=== PATIENT | male | born 1950 | race Caucasian/White ===

== ENCOUNTER 2021-10-15 15:11 | Inpatient (IN) | payer MEDICARE, SELFPAY ==
--- NOTE | ~2021-10-15 | CT_ITS ---
EXAMINATION: CT HEAD WITHOUT CONTRAST CLINICAL INFORMATION: Multiple falls. COMPARISON: None TECHNIQUE: Contiguous axial imaging was performed from the skull base to vertex without intravenous administration of contrast. This CT examination was performed using dose optimization techniques as appropriate, variously including the following: *Automated exposure control *Adjustment of mA and/or kV according to patient size (this includes techniques or standardized protocols for targeted exams where dose is matched to indication/reason for exam; i.e. extremities or head) *Use of iterative reconstruction technique DLP: 764 mGy-cm FINDINGS: There is no evidence of acute intracranial hemorrhage or territorial infarction. No abnormal mass effect or midline shift is seen. Melendrez to white matter differentiation is well preserved. No extra-axial fluid collections are identified. The ventricles are normal in size. There is no abnormal attenuation within the brain parenchyma. The osseous structures and soft tissues are normal. The mastoid air cells and visualized portions of the paranasal sinuses are well aerated. CT/CT head/brain wo con IMPRESSION: No acute intracranial hemorrhage or mass effect.
--- NOTE | ~2021-10-15 | US_ITS ---
EXAMINATION: US VENOUS ULTRASOUND WITH DOPPLER LOWER EXTREMITY, BILATERAL CLINICAL INFORMATION: Bilateral lower extremity edema. COMPARISON: None TECHNIQUE: Ultrasound of the deep veins is performed from the hip to the calf with compression sonography and color and pulse Doppler assessment. Spectral analysis with color-flow imaging is performed. FINDINGS: RIGHT: There is normal venous compression and respiratory variation and augmented flow. The visualized common femoral vein, femoral vein, profunda femoral vein, popliteal vein, and the trifurcation region shows no evidence of deep venous thrombosis. A 4.0 x 2.1 x 3.3 cm somewhat irregular largely simple-appearing avascular fluid collection is noted in the right popliteal fossa medially. LEFT: There is normal venous compression and respiratory variation and augmented flow. The visualized common femoral vein, femoral vein, profunda femoral vein, popliteal vein, and the trifurcation region shows no evidence of deep venous thrombosis. There is no significant popliteal fossa cyst. If the patient's symptoms persist, followup ultrasound in 5 days 7 days might be of value to exclude proximal propagation from a non-visualized calf vein. US/US venous duplex LE BI IMPRESSION: No DVT demonstrated in the bilateral lower extremity. A 4.0 x 2.1 x 3.3 cm fluid collection in the popliteal fossa.
--- NOTE | ~2021-10-15 | XR_ITS ---
EXAMINATION: XR CHEST CLINICAL INFORMATION: Weakness COMPARISON: None TECHNIQUE: Frontal view of the chest was obtained. FINDINGS: The cardiac and mediastinal contours are normal. There is slight elevation of the right hemidiaphragm. The lungs are clear. There is no pleural effusion or pneumothorax. There are degenerative changes of the thoracic spine. There are postsurgical changes of the cervical spine. XR/XR chest 1V IMPRESSION: Slightly elevated right hemidiaphragm. No evidence for acute disease in the chest.
--- NOTE | 2021-10-15 15:23 | ECG_ITS ---
Test Reason : WEAKNESS Blood Pressure : / mmHG Vent. Rate : 114 BPM Atrial Rate : 000 BPM P-R Int : 000 ms QRS Dur : 106 ms QT Int : 344 ms P-R-T Axes : 000 -55 108 degrees QTc Int : 474 ms atrial flutter with rapid ventricular response Left anterior fascicular block Minimal voltage criteria for LVH, may be normal variant ( [place] product ) Nonspecific ST and T wave abnormality Abnormal ECG No previous ECGs available Referred By: Mckenna Carreon Electronically Signed By:Alex Aragon
--- NOTE | 2021-10-15 15:25 | ED_ITS ---
HPI - Fall General Chief Complaint: General Medical <PRITI Burnette - Last Filed: 10/16/21 08:02> Stated Complaint: weakness/falls <PRITI Burnette Last Filed: 10/16/21 08:02> Time Seen by Provider: 10/15/21 15:20 <PRITI Burnette Last Filed: 10/16/21 08:02> Source: patient and EMS <PRITI Burnette Last Filed: 10/16/21 08:02> Mode of arrival: EMS <PRITI Burnette Last Filed: 10/16/21 08:02> Limitations: no limitations <PRITI Burnette Last Filed: 10/16/21 08:02> History of Present Illness HPI Narrative: 70-year-old male with history of Parkinson's disease, HTN, HLD presents to the ER with frequent falls and weakness at home. Family reports patient has had 4-5 falls in the last 2 days. No traumatic injury sustained but family is worried about his ability to be safe at home. Family reports over the last 1 month he has had several falls, 1 resulting in a significant laceration to the top of his head that is now scarred over. He is having trouble performing his activities of daily living. He lives at home with his elderly who is having trouble caring for him. She is also concerned about a possible urinary tract infection as he has been urinating much more frequently than usual. He has not had any fever, chills, nausea, vomiting or abdominal pain. He has denies any injuries from his fall. He feels at baseline. He has no chest pain or shortness of breath. On arrival patient noted to be tachycardic to the low 100s it appears to be in new onset rapid atrial atrial fibrillation. When asked about his falls he states sometimes he trips over things other times he feels dizzy and lightheaded prior to falling. He states he has felt this way for a very long time but is worsening lately. <PRITI Burnette Last Filed: 10/16/21 08:02> MD complaint: fall <PRITI Burnette Last Filed: 10/16/21 08:02> Onset (ago): week(s) <PRITI Burnette - Last Filed: 10/16/21 08:02> Fall from: standing <PRITI Burnette - Last Filed: 10/16/21 08:02> Fall witnessed: yes, by family <PRITI Burnette - Last Filed: 10/16/21 08:02> Place fall occurred: home <PRITI Burnette - Last Filed: 10/16/21 08:02> Loss of consciousness: none <PRITI Burnette - Last Filed: 10/16/21 08:02> Prolonged down time: no <PRITI Burnette - Last Filed: 10/16/21 08:02> Symptoms prior to fall: lightheadedness and dizziness <PRITI Burnette - Last Filed: 10/16/21 08:02> Context: tripped/slipped and history of frequent falls <PRITI Burnette - Last Filed: 10/16/21 08:02> Severity: moderate <PRITI Burnette - Last Filed: 10/16/21 08:02> Associated symptoms (after fall): weakness and lightheaded <PRITI Burnette - Last Filed: 10/16/21 08:02> Related Data Home Medications: Home Medications Medication Instructions Recorded Confirmed amlodipine 10 mg tablet 1 tab PO BEDTIME 10/15/21 10/16/21 carbidopa 25 mg-levodopa 100 mg 2 tab PO TID 10/15/21 10/16/21 tablet gabapentin 100 mg capsule 100 mg PO BID 10/15/21 10/15/21 tamsulosin 0.4 mg capsule 1 cap PO DAILY 10/15/21 10/15/21 trazodone 50 mg tablet 1 tab PO BEDTIME 10/15/21 10/15/21 venlafaxine 75 mg capsule,extended 1 cap PO DAILY 10/15/21 10/15/21 release 24 hr ascorbic acid (vitamin C) 1,000 mg 1,000 mg PO DAILY 10/16/21 10/16/21 tablet (Vitamin C) cholecalciferol (vitamin D3) 125 10,000 unit PO DAILY 10/16/21 10/16/21 mcg (5,000 unit) tablet (Vitamin D3) coenzyme Q10 200 mg capsule 200 mg PO DAILY 10/16/21 10/16/21 <PRITI Burnette - Last Filed: 10/16/21 08:02> Allergies/Adverse Reactions: Allergies Allergy/AdvReac Type Severity Reaction Status Date / Time No Known Drug Allergies Allergy Unknown Verified 10/15/21 16:52 <PRITI Burnette - Last Filed: 10/16/21 08:02> Review of Systems Review of Systems: Constitutional: No Fever, No Chills ENT/Mouth: No sore throat, No Rhinorrhea, No Swallowing Difficulty Cardiovascular: No Chest Pain, No SOB, No Orthopnea, No Edema Respiratory: No Cough, No Sputum, No Wheezing, No dyspnea Gastrointestinal: No Nausea, No Vomiting, No Diarrhea, No abdominal Pain, No Hematochezia, No Melena Genitourinary: No Dysuria, No Urinary Frequency, No Hematuria Musculoskeletal: No joint pain, No Myalgias Skin: No Skin Lesions, No rash Neuro: + Weakness, No Numbness, + Dizziness, No Headache Psych: No Anxiety/Panic, No Depression Heme/Lymph: No Bruising, No Lymphadenopathy Endocrine: No Polyuria, No Polydipsia <PRITI Burnette Last Filed: 10/16/21 08:02> [facility] Past Medical History Medical History: Medical History (Updated 10/15/21 @ 21:49 by Nathan Bingham MD) Depression HTN (hypertension) Parkinson disease <PRITI Burnette Last Filed: 10/16/21 08:02> Social History Social History: Social History Alcohol intake: never Patient Tobacco Use Status: Never used Tobacco Use of substances other than those prescribed or required for medical reasons: No Advance Directives: Yes Advance Directives Information Provided: No Advance Directives on File: No <PRITI Burnette - Last Filed: 10/16/21 08:02> Physical Exam Vital Signs: Vital Signs: Last Vital Signs Temp 98.1 F 10/16/21 07:13 Pulse 110 H 10/16/21 07:37 Resp 16 10/16/21 07:13 BP 143/89 H 10/16/21 07:37 Pulse Ox 93 10/16/21 07:13 BMI result Body Mass Index 29.8 <PRITI Burnette Last Filed: 10/16/21 08:02> Vital Signs: Last Vital Signs Temp 98.1 F 10/16/21 07:13 Pulse 110 H 10/16/21 07:37 Resp 16 10/16/21 07:13 BP 143/89 H 10/16/21 07:37 Pulse Ox 93 10/16/21 07:13 BMI result Body Mass Index 29.8 <AUSTYN SmithP-BC - Last Filed: 10/16/21 11:15> Appearance: Alert. Oriented X4. No acute distress. Eyes: Pupils equal, round and reactive to light. ENT: Pharynx normal. Neck: Normal inspection. Neck supple. CVS: irregularly irregular, no murmur. Pulses normal. Respiratory: No respiratory distress. Breath sounds shallow and rapid Abdomen: Soft and nontender. +BS x4 Skin: Skin warm and dry. Normal skin color. Normal skin turgor. No rashes. Extremities: 2+ lower extremity edema, pitting of the feet and ankles. No calf tenderness Neuro: Oriented X 4. Involuntary tremor of the right hand. Bilateral lower extremity weakness noted, symmetrical and equal throughout. equal hand grasp. <PRITI Burnette - Last Filed: 10/16/21 08:02> Course Course Course Narrative: 70-year-old male presenting to the ER with weakness and multiple falls over the last few days, increased over the last 1 month in general. He does report some dizziness and lightheadedness prior to some of his falls, but this seems to be chronic in nature. On arrival to the ER he is found to be in new onset rapid AFib. Blood pressure is stable. He is not a candidate for anticoagulation. He is nonfocal on exam, no suggestion of stroke at this time. Will get CT head to confirm. Doubt PE given no shortness of breath, hypoxia or chest pain. No syncopal events. He does have pitting LE edema, will check BNP and LE dopplers. <PRITI Burnette - Last Filed: 10/16/21 08:02> Reevaluation(s) Reevaluation #1: CT head shows no acute findings. He does have a white blood cell count of 14,000. UA is pending. No other signs of infection at this time. COVID is negative and there was no pneumonia on chest x-ray. LE dopplers are pending. HR improved to 90s after IV lopressor and confirmed he is in afib. Poor anticoagulation candidate given recurrent falls. Signed out to Rocio [employer]CHNICIAN who will assume care. Anticipate admission. <PRITI Burnette - Last Filed: 10/16/21 08:02> Time: 17:32 <PRITI Burnette - Last Filed: 10/16/21 08:02> Reevaluation #2: urinalysis negative for infection, ultrasound negative for DVTs. Patient will be admitted to hospitalist services for new onset atrial fibrillation. Spoke with hospitalist, aware of admission. <JOSE MARIA Smith - Last Filed: 10/16/21 11:15> MDM - Fall Medical Records Attestation: I reviewed the patient's medical records. <PRITI Burnette - Last Filed: 10/16/21 08:02> Lab Data Attestation: I reviewed the patient's lab results. <PRITI Burnette - Last Filed: 10/16/21 08:02> Result diagrams: : 10/16/21 05:40 10/16/21 05:40 <PRITI Burnette - Last Filed: 10/16/21 08:02> Labs: Lab Results 10/15/21 10/15/21 10/15/21 Range/Units 15:48 15:48 15:48 WBC 14.3 H (4.8-10.8) X10*3/uL RBC 4.83 (4.60-5.80) X10*6/uL Hgb 15.2 (14.0-18.0) g/dl Hct 43.9 (42.0-52.0) % MCV 90.9 (80.0-98.0) fL MCH 31.5 (27.0-33.0) pg MCHC 34.6 (31.0-36.0) g/dl RDW 12.9 (11.0-16.0) % Plt Count 221 (160-400) X10*3/uL MPV 11.5 (9.4-12.4) fL Immature Gran % (Auto) 0.4 (0.0-0.4) % Neut % (Auto) 87.0 H (45-73) % Lymph % (Auto) 6.8 L (20-40) % [place] % (Auto) 5.5 (2-11) % Eos % (Auto) 0.1 (0-4) % Baso % (Auto) 0.2 (0-2) % Lymph # (Auto) 1.0 L (1.2-4.9) X10*3/uL [place] # (Auto) 0.8 (0.1-1.2) X10*3/uL Eos # (Auto) 0.0 (0.0-0.4) X10*3/uL Baso # (Auto) 0.0 (0.0-0.2) X10*3/uL Abs Immat Gran (auto) 0.06 H (0.00-0.03) X10*3/uL Absolute Neuts (auto) 12.4 H (2.0-8.3) x10*3/uL Absolute Nucleated RBC 0.000 (0.0-0.012) X10*3/uL Nucleated RBC % (auto) 0.0 (0.0-0.2) /100WBC PT 13.3 H (9.9-13.0) SEC INR 1.2 H (0.9-1.1) APTT 27.9 (24.1-38.0) SEC Sodium 139 (135-145) mmol/L Potassium 3.9 (3.3-5.1) mmol/L Chloride 105 (96-108) mmol/L Carbon Dioxide 25 (22-29) mmol/L Anion Gap 13 (12-20) BUN 28 H (9-16) mg/dL Creatinine 0.96 (0.5-1.4) mg/dL Estim Creat Clear Calc 71.7 Estimated GFR > 60 Random Glucose 110 (60-115) mg/dL Calcium 9.4 (8.4-10.2) mg/dL Magnesium 2.2 (1.6-2.6) mg/dL Total Bilirubin 1.0 (0.0-1.0) mg/dL Direct Bilirubin 0.4 (0.0-0.5) mg/dL AST 22 (5-37) U/L ALT < 6 (0-40) U/L Alkaline Phosphatase 65 (39-117) U/L Troponin I High Sens (<3.5-35.0) ng/L B-Natriuretic Peptide (<100) pg/mL Total Protein 6.8 (6.5-8.0) g/dL Albumin 4.1 (3.5-5.0) g/dL Urine Color Urine Appearance Urine pH (5.0-8.0) Ur Specific [place] (1.005-1.025) Urine Protein (NEG-TRACE) MG/DL Urine Glucose (UA) (NEG) MG/DL Urine Ketones (NEG) MG/DL Urine Blood (NEG) Urine Nitrite (NEG) Ur Leukocyte Esterase (NEG) Urine RBC (0) /HPF Urine WBC (0-4) /HPF Ur Squamous Epith Cells /LPF Urine Bacteria /LPF COVID-19 (AYUSH) (Negative) COVID-19 Clin Com 10/15/21 10/15/21 10/15/21 Range/Units 15:48 15:48 18:38 WBC (4.8-10.8) X10*3/uL RBC (4.60-5.80) X10*6/uL Hgb (14.0-18.0) g/dl Hct (42.0-52.0) % MCV (80.0-98.0) fL MCH (27.0-33.0) pg MCHC (31.0-36.0) g/dl RDW (11.0-16.0) % Plt Count (160-400) X10*3/uL MPV (9.4-12.4) fL Immature Gran % (Auto) (0.0-0.4) % Neut % (Auto) (45-73) % Lymph % (Auto) (20-40) % [place] % (Auto) (2-11) % Eos % (Auto) (0-4) % Baso % (Auto) (0-2) % Lymph # (Auto) (1.2-4.9) X10*3/uL [place] # (Auto) (0.1-1.2) X10*3/uL Eos # (Auto) (0.0-0.4) X10*3/uL Baso # (Auto) (0.0-0.2) X10*3/uL Abs Immat Gran (auto) (0.00-0.03) X10*3/uL Absolute Neuts (auto) (2.0-8.3) x10*3/uL Absolute Nucleated RBC (0.0-0.012) X10*3/uL Nucleated RBC % (auto) (0.0-0.2) /100WBC PT (9.9-13.0) SEC INR (0.9-1.1) APTT (24.1-38.0) SEC Sodium (135-145) mmol/L Potassium (3.3-5.1) mmol/L Chloride (96-108) mmol/L Carbon Dioxide (22-29) mmol/L Anion Gap (12-20) BUN (9-16) mg/dL Creatinine (0.5-1.4) mg/dL Estim Creat Clear Calc Estimated GFR Random Glucose (60-115) mg/dL Calcium (8.4-10.2) mg/dL Magnesium (1.6-2.6) mg/dL Total Bilirubin (0.0-1.0) mg/dL Direct Bilirubin (0.0-0.5) mg/dL AST (5-37) U/L ALT (0-40) U/L Alkaline Phosphatase (39-117) U/L Troponin I High Sens 83.1 H (<3.5-35.0) ng/L B-Natriuretic Peptide 94 (<100) pg/mL Total Protein (6.5-8.0) g/dL Albumin (3.5-5.0) g/dL Urine Color YELLOW Urine Appearance CLEAR Urine pH 5.5 (5.0-8.0) Ur Specific [place] >= 1.030 H (1.005-1.025) Urine Protein 2+ H (NEG-TRACE) MG/DL Urine Glucose (UA) NEG (NEG) MG/DL Urine Ketones 15 (NEG) MG/DL Urine Blood NEG (NEG) Urine Nitrite NEG (NEG) Ur Leukocyte Esterase NEG (NEG) Urine RBC 0-2 (0) /HPF Urine WBC 0 (0-4) /HPF Ur Squamous Epith Cells TRACE /LPF Urine Bacteria NONE /LPF COVID-19 (AYUSH) Negative (Negative) COVID-19 Clin Com See Note <PRITI Burnette - Last Filed: 10/16/21 08:02> Lab Results 10/15/21 10/15/21 10/15/21 Range/Units 15:48 15:48 15:48 WBC 14.3 H (4.8-10.8) X10*3/uL RBC 4.83 (4.60-5.80) X10*6/uL Hgb 15.2 (14.0-18.0) g/dl Hct 43.9 (42.0-52.0) % MCV 90.9 (80.0-98.0) fL MCH 31.5 (27.0-33.0) pg MCHC 34.6 (31.0-36.0) g/dl RDW 12.9 (11.0-16.0) % Plt Count 221 (160-400) X10*3/uL MPV 11.5 (9.4-12.4) fL Immature Gran % (Auto) 0.4 (0.0-0.4) % Neut % (Auto) 87.0 H (45-73) % Lymph % (Auto) 6.8 L (20-40) % [place] % (Auto) 5.5 (2-11) % Eos % (Auto) 0.1 (0-4) % Baso % (Auto) 0.2 (0-2) % Lymph # (Auto) 1.0 L (1.2-4.9) X10*3/uL [place] # (Auto) 0.8 (0.1-1.2) X10*3/uL Eos # (Auto) 0.0 (0.0-0.4) X10*3/uL Baso # (Auto) 0.0 (0.0-0.2) X10*3/uL Abs Immat Gran (auto) 0.06 H (0.00-0.03) X10*3/uL Absolute Neuts (auto) 12.4 H (2.0-8.3) x10*3/uL Absolute Nucleated RBC 0.000 (0.0-0.012) X10*3/uL Nucleated RBC % (auto) 0.0 (0.0-0.2) /100WBC PT 13.3 H (9.9-13.0) SEC INR 1.2 H (0.9-1.1) APTT 27.9 (24.1-38.0) SEC Sodium 139 (135-145) mmol/L Potassium 3.9 (3.3-5.1) mmol/L Chloride 105 (96-108) mmol/L Carbon Dioxide 25 (22-29) mmol/L Anion Gap 13 (12-20) BUN 28 H (9-16) mg/dL Creatinine 0.96 (0.5-1.4) mg/dL Estim Creat Clear Calc 71.7 Estimated GFR > 60 Random Glucose 110 (60-115) mg/dL Calcium 9.4 (8.4-10.2) mg/dL Magnesium 2.2 (1.6-2.6) mg/dL Total Bilirubin 1.0 (0.0-1.0) mg/dL Direct Bilirubin 0.4 (0.0-0.5) mg/dL AST 22 (5-37) U/L ALT < 6 (0-40) U/L Alkaline Phosphatase 65 (39-117) U/L Troponin I High Sens (<3.5-35.0) ng/L B-Natriuretic Peptide (<100) pg/mL Total Protein 6.8 (6.5-8.0) g/dL Albumin 4.1 (3.5-5.0) g/dL Urine Color Urine Appearance Urine pH (5.0-8.0) Ur Specific [place] (1.005-1.025) Urine Protein (NEG-TRACE) MG/DL Urine Glucose (UA) (NEG) MG/DL Urine Ketones (NEG) MG/DL Urine Blood (NEG) Urine Nitrite (NEG) Ur Leukocyte Esterase (NEG) Urine RBC (0) /HPF Urine WBC (0-4) /HPF Ur Squamous Epith Cells /LPF Urine Bacteria /LPF COVID-19 (AYUSH) (Negative) COVID-19 Clin Com 10/15/21 10/15/21 10/15/21 Range/Units 15:48 15:48 18:38 WBC (4.8-10.8) X10*3/uL RBC (4.60-5.80) X10*6/uL Hgb (14.0-18.0) g/dl Hct (42.0-52.0) % MCV (80.0-98.0) fL MCH (27.0-33.0) pg MCHC (31.0-36.0) g/dl RDW (11.0-16.0) % Plt Count (160-400) X10*3/uL MPV (9.4-12.4) fL Immature Gran % (Auto) (0.0-0.4) % Neut % (Auto) (45-73) % Lymph % (Auto) (20-40) % [place] % (Auto) (2-11) % Eos % (Auto) (0-4) % Baso % (Auto) (0-2) % Lymph # (Auto) (1.2-4.9) X10*3/uL [place] # (Auto) (0.1-1.2) X10*3/uL Eos # (Auto) (0.0-0.4) X10*3/uL Baso # (Auto) (0.0-0.2) X10*3/uL Abs Immat Gran (auto) (0.00-0.03) X10*3/uL Absolute Neuts (auto) (2.0-8.3) x10*3/uL Absolute Nucleated RBC (0.0-0.012) X10*3/uL Nucleated RBC % (auto) (0.0-0.2) /100WBC PT (9.9-13.0) SEC INR (0.9-1.1) APTT (24.1-38.0) SEC Sodium (135-145) mmol/L Potassium (3.3-5.1) mmol/L Chloride (96-108) mmol/L Carbon Dioxide (22-29) mmol/L Anion Gap (12-20) BUN (9-16) mg/dL Creatinine (0.5-1.4) mg/dL Estim Creat Clear Calc Estimated GFR Random Glucose (60-115) mg/dL Calcium (8.4-10.2) mg/dL Magnesium (1.6-2.6) mg/dL Total Bilirubin (0.0-1.0) mg/dL Direct Bilirubin (0.0-0.5) mg/dL AST (5-37) U/L ALT (0-40) U/L Alkaline Phosphatase (39-117) U/L Troponin I High Sens 83.1 H (<3.5-35.0) ng/L B-Natriuretic Peptide 94 (<100) pg/mL Total Protein (6.5-8.0) g/dL Albumin (3.5-5.0) g/dL Urine Color YELLOW Urine Appearance CLEAR Urine pH 5.5 (5.0-8.0) Ur Specific [place] >= 1.030 H (1.005-1.025) Urine Protein 2+ H (NEG-TRACE) MG/DL Urine Glucose (UA) NEG (NEG) MG/DL Urine Ketones 15 (NEG) MG/DL Urine Blood NEG (NEG) Urine Nitrite NEG (NEG) Ur Leukocyte Esterase NEG (NEG) Urine RBC 0-2 (0) /HPF Urine WBC 0 (0-4) /HPF Ur Squamous Epith Cells TRACE /LPF Urine Bacteria NONE /LPF COVID-19 (AYUSH) Negative (Negative) COVID-19 Clin Com See Note <Niyah Kilgore, RISK MANAGEMENT SPECIALIST-BC - Last Filed: 10/16/21 11:15> ECG Data Attestation: I personally reviewed and interpreted this ECG as follows: <PRITI Burnette - Last Filed: 10/16/21 08:02> ECG interpretation date: 10/15/21 <PRITI Burnette - Last Filed: 10/16/21 08:02> Interpretation: 10/15/21 @ 16:22 - rapid atrial fibrillation vs sinus tachycardia? p waves seen in leads II, V1-V3, HR 114, LAFB, no ST segment elevations 10/15/21 @ 17:12 - atrial fibrillation, HR 88 bpm, LAFB, nonspecific ST and T wave abnormality <PRITI Burnette - Last Filed: 10/16/21 08:02> Critical Care Time Critical Care Time Critical Care Time: Yes <PRITI Burnette - Last Filed: 10/16/21 08:02> Total Critical Care Time: 38 <PRITI Burnette - Last Filed: 10/16/21 08:02> Attestation: I have personally provided critical care time exclusive of time spent on separately billable procedures. Time includes review of lab data, radiology results, discussion with consultants, and monitoring for potential decompensa tion. Intervention performed as documented. <PRITI Burnette - Last Filed: 10/16/21 08:02> Discharge Plan Discharge Clinical Impression: New onset a-fib, Multiple falls, Bilateral edema of lower extremity <PRITI Burnette - Last Filed: 10/16/21 08:02> Patient Disposition: Admitted As Inpatient <PRITI Burnette - Last Filed: 10/16/21 08:02>
[2021-10-15 15:53] VITALS: BP 132/67; BP 135/66; PULSE 114; PULSE 98; RESP 30; TEMP 36.6; O2SAT 97; BMI 29.8
[2021-10-15 15:55] LABS: MANUAL DIFF FLAG NO
[2021-10-15 15:56] LABS: Basophils Percent Auto 0.2 % (0-2); Eosinophils Percent Auto 0.1 % (0-4); Hematocrit 43.9 % (42.0-52.0); Hemoglobin 15.2 g/dl (14.0-18.0); Imm Gran Abs Auto 0.06 X10*3/uL (0.00-0.03); Imm Gran Pct Auto 0.4 % (0.0-0.4); Lymphocytes Percent Auto 6.8 % (20-40); Mean Corpuscular HGB Conc 34.6 g/dl (31.0-36.0); Mean Corpuscular Hemoglobin 31.5 pg (27.0-33.0); Mean Corpuscular Volume 90.9 fL (80.0-98.0); Mean Platelet Volume 11.5 fL (9.4-12.4); Monocytes Absolute Auto 0.8 X10*3/uL (0.1-1.2); Monocytes Percent Auto 5.5 % (2-11); Neutrophils Absolute Auto 12.4 x10*3/uL (2.0-8.3); Platelet Count 221 X10*3/uL (160-400); Red Blood Count 4.83 X10*6/uL (4.60-5.80); Red Cell Distribution Width 12.9 % (11.0-16.0); White Blood Count 14.3 X10*3/uL (4.8-10.8)
[2021-10-15 16:00] VITALS: BP 123/67; PULSE 103; RESP 16; O2SAT 95
[2021-10-15 16:03] LABS: INTERNATIONAL NORM RATIO 1.2 (0.9-1.1); Prothrombin Time 13.3 SEC (9.9-13.0)
[2021-10-15 16:06] LABS: Partial Thromboplastin Time 27.9 SEC (24.1-38.0)
[2021-10-15 16:14] LABS: Alanine Aminotransferase < 6 U/L (0-40); Albumin Level 4.1 g/dL (3.5-5.0); Alkaline Phosphatase 65 U/L (39-117); Anion Gap 13 (12-20); Aspartate Amino Transferase 22 U/L (5-37); Bilirubin Direct 0.4 mg/dL (0.0-0.5); Blood Urea Nitrogen 28 mg/dL (9-16); Calcium 9.4 mg/dL (8.4-10.2); Carbon Dioxide 25 mmol/L (22-29); Chloride 105 mmol/L (96-108); Creatinine Clr Calc Pharmacy 71.7; Estimated Glomerular Filt Rate > 60; Glucose Random 110 mg/dL (60-115); Magnesium 2.2 mg/dL (1.6-2.6); Potassium 3.9 mmol/L (3.3-5.1); Sodium 139 mmol/L (135-145); Total Protein 6.8 g/dL (6.5-8.0)
[2021-10-15 16:24] LABS: COVID-19 Test Negative (Negative)
[2021-10-15 16:52] VITALS: BP 123/67; PULSE 107
[2021-10-15] MEDS: Metoprolol Tartrate 5 MG/5 ML VIAL IVPUSH (16:52)
--- NOTE | 2021-10-15 17:01 | PC.NURSE ---
Pt presents with family, recent history of falls, pt lives with family but isn't always supervised. Pt offers no complaints, A&O but slightly confused per family. , LCA, NSR, no gi/gu complaints but family thinks possibly UTI. Plan for CT scan of the head. Family at bedside, call henderson within reach. Will continue to monitor.
[2021-10-15 17:05] VITALS: PULSE 110
--- NOTE | 2021-10-15 17:07 | ECG_ITS ---
Test Reason : WEAKNESS Blood Pressure : / mmHG Vent. Rate : 088 BPM Atrial Rate : 000 BPM P-R Int : 000 ms QRS Dur : 104 ms QT Int : 368 ms P-R-T Axes : 000 -55 100 degrees QTc Int : 445 ms Atrial fibrillation Left anterior fascicular block Minimal voltage criteria for LVH, may be normal variant ( [place] product ) Nonspecific ST and T wave abnormality Abnormal ECG When compared with ECG of 15-OCT-2021 16:22, No significant change was found Referred By: Mckenna Carreon Electronically Signed By:Alex Aragon
[2021-10-15 17:58] LABS: B Type Natriuretic Peptide 94 pg/mL (<100); Troponin-I High Sensitivity 83.1 ng/L (<3.5-35.0)
[2021-10-15 18:00] VITALS: BP 126/68; PULSE 87; RESP 22; O2SAT 96
--- NOTE | 2021-10-15 18:39 | PC.NURSE ---
Straight cath'd for approx 800cc dark karl urine. Awaiting results. Family at bedside, will continue to monitor.
[2021-10-15 18:47] LABS: Appearance Urine CLEAR; Color Urine YELLOW; Glucose Urine UA NEG (NEG); Leukocyte Esterase Urine NEG (NEG); Nitrite Urine NEG (NEG); PH 5.5 (5.0-8.0); Specific Gravity - Urine >= 1.030 (1.005-1.025); UACC Culture Trigger NO; Urine Blood NEG (NEG); Urine Ketones 15 MG/DL (NEG); Urine Protein 2+ MG/DL (NEG-TRACE)
[2021-10-15 19:03] LABS: RBC Urine 0-2 /HPF (0); Squamous Epithelial Cell Urine TRACE /LPF; WBC Urine 0 /HPF (0-4)
--- NOTE | 2021-10-15 21:49 | PM.IMHP ---
History of Present Illness Date of Service: 10/15/21 Chief Complaint: generalized weakness 77-year-old male with a past medical history of hypertension, depression, Parkinson disease presented to the hospital today with a chief complaint of generalized weakness. Most of the history obtained from the family members and patient. Reportedly over the past 3 days he has been not feeling well, increased weakness and tiredness; not moving around; had multiple episodes of soft falls; denies any head strike or loss of consciousness. And burning to the hospital for further evaluation. Patient denies any chest pain palpitations lightheadedness or dizziness. Denies any numbness tingling or focal weakness. Per family patient has been following with the neurologist at [facility]-has been giving small dose carbidopa levodopa for his tremors on the right upper and lower extremities -likely secondary to early Parkinson disease. Denies any signs of infection recently. Review of all other systems is negative except mentioned above ER course: Per ER team patient noted to have new onset AFib on the EKG with heart rate in 120s to 130s on presentation; urinalysis negative for infection. Labs essentially benign. Admitted to the hospital for further management. [facility] Medical History (Updated 10/15/21 @ 21:49 by Nathan Bingham MD) Depression HTN (hypertension) Parkinson disease Pertinent family history: reviewed Social History Patient Tobacco Use Status: Never used Tobacco Use of substances other than those prescribed or required for medical reasons: No Advance Directives: Yes Advance Directives Information Provided: No Advance Directives on File: No Meds Allergies Allergy/AdvReac Type Severity Reaction Status Date / Time No Known Drug Allergies Allergy Unknown Verified 10/15/21 16:52 Active Medications: Current Medications Acetaminophen (Acetaminophen 325 Mg Tablet) 650 mg PO Q6H PRN PRN Reason: Pain, Mild (Pain Scale 1-3) Melatonin (Melatonin 3 Mg Tablet) 6 mg PO BEDTIME PRN PRN Reason: Insomnia Metoprolol Tartrate (Metoprolol Tartrate 12.5 Mg Halftab) 12.5 mg PO BID [facility]; Protocol Metoprolol Tartrate (Metoprolol Tartrate 5 Mg/5 Ml Vial) 5 mg IVPUSH Q6H PRN PRN Reason: HR>125 Pharmacy Consult (Consult Rx Perform Med Rec) 1 each MISCELLANE ONCE PRN PRN Reason: Consult order Senna (Sennosides 8.6 Mg Tablet) 17.2 mg PO BEDTIME PRN PRN Reason: Constipation Sodium Chloride (0.9 % Sodium Chloride Flush 3 Ml Syringe) 3 ml IVFLUSH QSHIFT [place] Physical Exam Vital Signs and Narrative: Vital Signs: Last Vital Signs Temp 98 F 10/15/21 15:53 Pulse 87 10/15/21 18:00 Resp 22 H 10/15/21 18:00 BP 126/68 10/15/21 18:00 Pulse Ox 96 10/15/21 18:00 BMI result Body Mass Index 29.8 Gen: Appears be in no acute distress HEENT: NCAT, Moist mucosa. Pulmonary: Vesicular breath sounds, fair air entry CVS: Normal S1-S2 Abdomen: BS+, Soft, Nontender Extremities: Warm well perfused Neuro: Alert and awake. Results Labs CBC and Chem 7: 10/15/21 15:48 10/15/21 15:48 Labs: Laboratory Results - last 24 hr 10/15/21 10/15/21 10/15/21 15:48 15:48 15:48 MCV 90.9 MCH 31.5 MCHC 34.6 RDW 12.9 Plt Count 221 MPV 11.5 Immature Gran % (Auto) 0.4 Neut % (Auto) 87.0 H Lymph % (Auto) 6.8 L [place] % (Auto) 5.5 Eos % (Auto) 0.1 Baso % (Auto) 0.2 Lymph # (Auto) 1.0 L [place] # (Auto) 0.8 Eos # (Auto) 0.0 Baso # (Auto) 0.0 Abs Immat Gran (auto) 0.06 H Absolute Neuts (auto) 12.4 H Absolute Nucleated RBC 0.000 Nucleated RBC % (auto) 0.0 PT 13.3 H INR 1.2 H APTT 27.9 Anion Gap 13 Estim Creat Clear Calc 71.7 Estimated GFR > 60 Random Glucose 110 Calcium 9.4 Magnesium 2.2 Total Bilirubin 1.0 Direct Bilirubin 0.4 AST 22 ALT < 6 Alkaline Phosphatase 65 Troponin I High Sens B-Natriuretic Peptide Total Protein 6.8 Albumin 4.1 Urine Color Urine Appearance Urine pH Ur Specific [place] Urine Protein Urine Glucose (UA) Urine Ketones Urine Blood Urine Nitrite Ur Leukocyte Esterase Urine RBC Urine WBC Ur Squamous Epith Cells Urine Bacteria COVID-19 (AYUSH) COVID-19 Clin Com 10/15/21 10/15/21 10/15/21 15:48 15:48 18:38 MCV MCH MCHC RDW Plt Count MPV Immature Gran % (Auto) Neut % (Auto) Lymph % (Auto) [place] % (Auto) Eos % (Auto) Baso % (Auto) Lymph # (Auto) [place] # (Auto) Eos # (Auto) Baso # (Auto) Abs Immat Gran (auto) Absolute Neuts (auto) Absolute Nucleated RBC Nucleated RBC % (auto) PT INR APTT Anion Gap Estim Creat Clear Calc Estimated GFR Random Glucose Calcium Magnesium Total Bilirubin Direct Bilirubin AST ALT Alkaline Phosphatase Troponin I High Sens 83.1 H B-Natriuretic Peptide 94 Total Protein Albumin Urine Color YELLOW Urine Appearance CLEAR Urine pH 5.5 Ur Specific [place] >= 1.030 H Urine Protein 2+ H Urine Glucose (UA) NEG Urine Ketones 15 Urine Blood NEG Urine Nitrite NEG Ur Leukocyte Esterase NEG Urine RBC 0-2 Urine WBC 0 Ur Squamous Epith Cells TRACE Urine Bacteria NONE COVID-19 (AYUSH) Negative COVID-19 Clin Com See Note Imaging Radiologist's Impressions: Impressions Chest X-Ray 10/15/21 15:35 IMPRESSION: Slightly elevated right hemidiaphragm. No evidence for acute disease in the chest. Head CT 10/15/21 16:24 IMPRESSION: No acute intracranial hemorrhage or mass effect. Venous Duplex 10/15/21 17:54 IMPRESSION: No DVT demonstrated in the bilateral lower extremity. A 4.0 x 2.1 x 3.3 cm fluid collection in the popliteal fossa. Assessment and Plan (1) New onset a-fib: Status: Acute (2) Multiple falls: Status: Acute (3) Parkinson disease: Status: Acute (4) HTN (hypertension): Status: Acute 77-year-old male with a past medical history of hypertension, depression, Parkinson disease presented to the hospital today with a chief complaint of generalized weakness. Also complained of recurrent falls. Noted to have new onset AFib as well. Admitted for further management. Multiple falls: Presumed to be secondary to his Parkinson's disease. fall precautions. PT /OT eventually. ? Parkinson related - will consult Neurology for further input. History of Parkinson disease: Continue home carbidopa levodopa. New onset AFib: Patient's heart rate is currently in 120s to 130s. Will start the patient on metoprolol 12.5 mg b.i.d.. Echocardiogram Cardiology consult patient is high risk for bleeding given recurrent falls. Will defer to Cardiology in regards anticoagulation treatment Decision. History of Hypertension: Continue home amlodipine. History of depression: Continue home medications. DVT prophylaxis: SCD boots Code status: Full code Quality Stroke Does the patient have a stroke diagnosis?: No VTE Prior VTE?: No VTE Risk Level:: Medical - moderate - high VTE Device Contraindication: N/A - Device Ordered VTE Drug Contraindication: Treatment Not Indicated
[2021-10-16] MEDS: 0.9 % Sodium Chloride Flush 3 ML SYRINGE IVFLUSH ×5 (00:18→15:01)
[2021-10-16 02:55] VITALS: BP 142/82; PULSE 132; RESP 22; O2SAT 96
[2021-10-16 03:04] VITALS: BP 142/82; PULSE 132
[2021-10-16] MEDS: Metoprolol Tartrate 5 MG/5 ML VIAL IVPUSH (03:04)
[2021-10-16] MEDS: Carbidopa/Levodopa 25/100 TABLET 2 TAB PO ×4 (03:48→22:07)
[2021-10-16] MEDS: Gabapentin 100 MG CAPSULE PO ×3 (03:48→22:07)
[2021-10-16 04:34] LABS: Troponin-I High Sensitivity 91.6 ng/L (<3.5-35.0)
[2021-10-16 05:45] LABS: Basophils Percent Auto 0.3 % (0-2); Eosinophils Absolute Auto 0.1 X10*3/uL (0.0-0.4); Eosinophils Percent Auto 0.5 % (0-4); Hematocrit 43.3 % (42.0-52.0); Hemoglobin 15.1 g/dl (14.0-18.0); Imm Gran Abs Auto 0.07 X10*3/uL (0.00-0.03); Imm Gran Pct Auto 0.5 % (0.0-0.4); Lymphocytes Percent Auto 14.1 % (20-40); MANUAL DIFF FLAG NO; Mean Corpuscular HGB Conc 34.9 g/dl (31.0-36.0); Mean Corpuscular Hemoglobin 31.7 pg (27.0-33.0); Mean Corpuscular Volume 90.8 fL (80.0-98.0); Mean Platelet Volume 11.2 fL (9.4-12.4); Monocytes Absolute Auto 0.8 X10*3/uL (0.1-1.2); Neutrophils Absolute Auto 10.9 x10*3/uL (2.0-8.3); Neutrophils Percent Auto 78.6 % (45-73); Platelet Count 232 X10*3/uL (160-400); Red Blood Count 4.77 X10*6/uL (4.60-5.80); Red Cell Distribution Width 12.8 % (11.0-16.0); White Blood Count 13.9 X10*3/uL (4.8-10.8)
[2021-10-16 06:05] LABS: Anion Gap 10 (12-20); Blood Urea Nitrogen 27 mg/dL (9-16); Calcium 9.3 mg/dL (8.4-10.2); Carbon Dioxide 27 mmol/L (22-29); Chloride 105 mmol/L (96-108); Estimated Glomerular Filt Rate > 60; Glucose Random 119 mg/dL (60-115); Potassium 3.7 mmol/L (3.3-5.1); Sodium 138 mmol/L (135-145)
--- NOTE | 2021-10-16 06:07 | PC.NURSE ---
I assumed care of this pt at 1900. Since that time the pt has been resting in bed, occasionally awake and occasionally asleep. He has tremors that are consistent with his baseline per family who was present at 1900. The pt has been OOB independently x 1 despite me requesting he not get OOB independently. His gait was steady but slow and shuffling - he is a fall risk. I assisted him back into bed and he has slept through the night since then. When awake he is alert, makes eye contact with RN and is calm and cooperative. Respirations have been non-labored, RR WNL, no cyanosis, room air sat's 95% or better. As my shift continued the pt's HR gradually increased until it was holding above 130bpm, Afib. Trina FRITZ aware, requests pt receive metoprolol 5mg IVP - this was given and his HR has decreased to 90's-low 100's. Pt has taken PO meds overnight (see eMar) without difficulty. Will continue to monitor.
[2021-10-16 07:13] VITALS: BP 143/89; PULSE 110; RESP 16; TEMP 36.7; O2SAT 93
[2021-10-16 07:37] VITALS: BP 143/89; PULSE 110
[2021-10-16] MEDS: Tamsulosin HCL 0.4 MG CAPSULE PO (07:37)
[2021-10-16] MEDS: Metoprolol Tartrate 12.5 MG HALFTAB PO ×2 (07:37→22:08)
[2021-10-16] MEDS: Venlafaxine HCl ER 75 MG CAP.ER.24H PO (07:38)
--- NOTE | 2021-10-16 07:43 | PC.NURSE ---
pt medicated per emar. resting in bed comfortably. pt requesting to hob to be lowered. warm blankets provided. pt aware of plan of care for admission. denied having any questions at this time. vss. hr 110s.
--- NOTE | 2021-10-16 10:27 | PM.CNCAR ---
History of Present Illness History of Present Illness Date of Service: 10/16/21 Requesting physician: Nathan Bingham Chief complaint: Afib, falls Narrative: 70-year-old gentleman with background history of hypertension, depression, Parkinson disease and multiple falls who is presenting for fall and was noted to be in AFib. This is a new diagnosis for him. Denying any symptoms at this point. No chest pain or shortness of breath. No palpitations. Heart rate in low 100s at this point. It appears he has Parkinson disease any has been falling at home. [facility] Past Medical History Medical History (Updated 10/15/21 @ 21:49 by Nathan Bingham MD) Depression HTN (hypertension) Parkinson disease Social History Social History Alcohol intake: never Patient Tobacco Use Status: Never used Tobacco Use of substances other than those prescribed or required for medical reasons: No Advance Directives: Yes Advance Directives Information Provided: No Advance Directives on File: No Meds Allergies Allergy/AdvReac Type Severity Reaction Status Date / Time No Known Drug Allergies Allergy Unknown Verified 10/15/21 16:52 Active Medications: Current Medications Acetaminophen (Acetaminophen 325 Mg Tablet) 650 mg PO Q6H PRN PRN Reason: Pain, Mild (Pain Scale 1-3) Carbidopa/Levodopa (Carbidopa/Levodopa 25/100 Tablet) 2 tab PO DAILY [facility] Last Admin: 10/16/21 07:38 Dose: 2 tab Documented by: Gabapentin (Gabapentin 100 Mg Capsule) 100 mg PO BID [facility] Last Admin: 10/16/21 07:37 Dose: 100 mg Documented by: Melatonin (Melatonin 3 Mg Tablet) 6 mg PO BEDTIME PRN PRN Reason: Insomnia Metoprolol Tartrate (Metoprolol Tartrate 12.5 Mg Halftab) 12.5 mg PO BID [facility]; Protocol Last Admin: 10/16/21 07:37 Dose: 12.5 mg Documented by: Metoprolol Tartrate (Metoprolol Tartrate 5 Mg/5 Ml Vial) 5 mg IVPUSH Q6H PRN PRN Reason: HR>125 Last Admin: 10/16/21 03:04 Dose: 5 mg Documented by: Pharmacy Consult (Consult Rx Perform Med Rec) 1 each MISCELLANE ONCE PRN PRN Reason: Consult order Senna (Sennosides 8.6 Mg Tablet) 17.2 mg PO BEDTIME PRN PRN Reason: Constipation Sodium Chloride (0.9 % Sodium Chloride Flush 3 Ml Syringe) [facility] Last Admin: 10/16/21 07:38 Dose: 3 ml Documented by: Sodium Chloride (0.9 % Sodium Chloride Flush 3 Ml Syringe) 3 ml IVFLUSH [facility] Last Admin: 10/16/21 07:38 Dose: 3 ml Documented by: Tamsulosin HCl (Tamsulosin Hcl 0.4 Mg Capsule) 0.4 mg PO DAILY [facility] Last Admin: 10/16/21 07:37 Dose: 0.4 mg Documented by: Trazodone HCl (Trazodone Hcl 50 Mg Tablet) 50 mg PO BEDTIME [facility] Venlafaxine HCl (Venlafaxine Hcl Er 75 Mg Cap.Er.24h) 75 mg PO DAILY [facility] Last Admin: 10/16/21 07:38 Dose: 75 mg Documented by: Home Medications Medication Instructions Recorded Confirmed Last Taken Type amlodipine 10 mg tablet 1 tab PO BEDTIME 10/15/21 10/16/21 Unknown History carbidopa 25 mg-levodopa 100 mg 2 tab PO TID 10/15/21 10/16/21 Unknown History tablet gabapentin 100 mg capsule 100 mg PO BID 10/15/21 10/15/21 Unknown History tamsulosin 0.4 mg capsule 1 cap PO DAILY 10/15/21 10/15/21 Unknown History trazodone 50 mg tablet 1 tab PO BEDTIME 10/15/21 10/15/21 Unknown History venlafaxine 75 mg capsule,extended 1 cap PO DAILY 10/15/21 10/15/21 Unknown History release 24 hr ascorbic acid (vitamin C) 1,000 mg 1,000 mg PO DAILY 10/16/21 10/16/21 Unknown History tablet (Vitamin C) cholecalciferol (vitamin D3) 125 10,000 unit PO DAILY 10/16/21 10/16/21 Unknown History mcg (5,000 unit) tablet (Vitamin D3) coenzyme Q10 200 mg capsule 200 mg PO DAILY 10/16/21 10/16/21 Unknown History Physical Exam Vital Signs: Vital Signs: Last Vital Signs Temp 98.1 F 10/16/21 07:13 Pulse 110 H 10/16/21 07:37 Resp 16 10/16/21 07:13 BP 143/89 H 10/16/21 07:37 Pulse Ox 93 12/12/21 07:13 BMI result Body Mass Index 29.8 GENERAL APPEARANCE: in no acute distress, pleasant. NECK: no jugular venous distention. SKIN: no suspicious lesions, warm and dry. HEART: no murmurs, irregular rate and rhythm. LUNGS: clear to auscultation bilaterally. ABDOMEN: soft, nontender. EXTREMITIES: no edema. PERIPHERAL PULSES: equal. NEUROLOGIC: No gross deficits, AAO X 3 Objective Labs and Meds Result diagrams: 10/16/21 05:40 10/16/21 05:40 Lab results: Laboratory Results - last 24 hr 10/15/21 10/15/21 10/15/21 15:48 15:48 15:48 WBC 14.3 H RBC 4.83 Hgb 15.2 Hct 43.9 MCV 90.9 MCH 31.5 MCHC 34.6 RDW 12.9 Plt Count 221 MPV 11.5 Immature Gran % (Auto) 0.4 Neut % (Auto) 87.0 H Lymph % (Auto) 6.8 L [place] % (Auto) 5.5 Eos % (Auto) 0.1 Baso % (Auto) 0.2 Lymph # (Auto) 1.0 L [place] # (Auto) 0.8 Eos # (Auto) 0.0 Baso # (Auto) 0.0 Abs Immat Gran (auto) 0.06 H Absolute Neuts (auto) 12.4 H Absolute Nucleated RBC 0.000 Nucleated RBC % (auto) 0.0 PT 13.3 H INR 1.2 H APTT 27.9 Sodium 139 Potassium 3.9 Chloride 105 Carbon Dioxide 25 Anion Gap 13 BUN 28 H Creatinine 0.96 Estim Creat Clear Calc 71.7 Estimated GFR > 60 Random Glucose 110 Calcium 9.4 Magnesium 2.2 Total Bilirubin 1.0 Direct Bilirubin 0.4 AST 22 ALT < 6 Alkaline Phosphatase 65 Troponin I High Sens B-Natriuretic Peptide Total Protein 6.8 Albumin 4.1 Urine Color Urine Appearance Urine pH Ur Specific [place] Urine Protein Urine Glucose (UA) Urine Ketones Urine Blood Urine Nitrite Ur Leukocyte Esterase Urine RBC Urine WBC Ur Squamous Epith Cells Urine Bacteria COVID-19 (AYUSH) COVID-19 Clin Com 10/15/21 10/15/21 10/15/21 15:48 15:48 18:38 WBC RBC Hgb Hct MCV MCH MCHC RDW Plt Count MPV Immature Gran % (Auto) Neut % (Auto) Lymph % (Auto) [place] % (Auto) Eos % (Auto) Baso % (Auto) Lymph # (Auto) [place] # (Auto) Eos # (Auto) Baso # (Auto) Abs Immat Gran (auto) Absolute Neuts (auto) Absolute Nucleated RBC Nucleated RBC % (auto) PT INR APTT Sodium Potassium Chloride Carbon Dioxide Anion Gap BUN Creatinine Estim Creat Clear Calc Estimated GFR Random Glucose Calcium Magnesium Total Bilirubin Direct Bilirubin AST ALT Alkaline Phosphatase Troponin I High Sens 83.1 H B-Natriuretic Peptide 94 Total Protein Albumin Urine Color YELLOW Urine Appearance CLEAR Urine pH 5.5 Ur Specific [place] >= 1.030 H Urine Protein 2+ H Urine Glucose (UA) NEG Urine Ketones 15 Urine Blood NEG Urine Nitrite NEG Ur Leukocyte Esterase NEG Urine RBC 0-2 Urine WBC 0 Ur Squamous Epith Cells TRACE Urine Bacteria NONE COVID-19 (AYUSH) Negative COVID-19 Clin Com See Note 10/16/21 10/16/21 10/16/21 03:59 05:40 05:40 WBC 13.9 H RBC 4.77 Hgb 15.1 Hct 43.3 MCV 90.8 MCH 31.7 MCHC 34.9 RDW 12.8 Plt Count 232 MPV 11.2 Immature Gran % (Auto) 0.5 H Neut % (Auto) 78.6 H Lymph % (Auto) 14.1 L [place] % (Auto) 6.0 Eos % (Auto) 0.5 Baso % (Auto) 0.3 Lymph # (Auto) 2.0 [place] # (Auto) 0.8 Eos # (Auto) 0.1 Baso # (Auto) 0.0 Abs Immat Gran (auto) 0.07 H Absolute Neuts (auto) 10.9 H Absolute Nucleated RBC 0.000 Nucleated RBC % (auto) 0.0 PT INR APTT Sodium 138 Potassium 3.7 Chloride 105 Carbon Dioxide 27 Anion Gap 10 L BUN 27 H Creatinine 0.85 Estim Creat Clear Calc 81.0 Estimated GFR > 60 Random Glucose 119 H Calcium 9.3 Magnesium Total Bilirubin Direct Bilirubin AST ALT Alkaline Phosphatase Troponin I High Sens 91.6 H B-Natriuretic Peptide Total Protein Albumin Urine Color Urine Appearance Urine pH Ur Specific [place] Urine Protein Urine Glucose (UA) Urine Ketones Urine Blood Urine Nitrite Ur Leukocyte Esterase Urine RBC Urine WBC Ur Squamous Epith Cells Urine Bacteria COVID-19 (AYUSH) COVID-19 Clin Com Imaging Radiologist's impression: Impressions Chest X-Ray 10/15/21 15:35 IMPRESSION: Slightly elevated right hemidiaphragm. No evidence for acute disease in the chest. Head CT 10/15/21 16:24 IMPRESSION: No acute intracranial hemorrhage or mass effect. Venous Duplex 10/15/21 17:54 IMPRESSION: No DVT demonstrated in the bilateral lower extremity. A 4.0 x 2.1 x 3.3 cm fluid collection in the popliteal fossa. Assessment and Plan (1) New onset a-fib: Status: Acute New onset atrial fibrillation in a 70-year-old gentleman with falls due to Parkinson's disease. Agree with beta blockers. Starting anticoagulation is challenging in this gentleman because of frequent falls. It appears he lives at home. I think he should have repeat evaluation to see if he will need rehab or if there is any plan to have him in an institution because of been told by the ER that it is becoming increasingly difficult for the family to take care of him. If he is going to a facility I would start him on anticoagulation. If he is going home then I think starting anticoagulation is challenging and I would not recommend that. Thank you for allowing me to participate in the care of your patient. Please feel free to contact me if you have any questions. Procedures Date of Service Date of Service: 10/16/21
--- NOTE | 2021-10-16 10:40 | PHA.MEDREC ---
Pharmacy Consult ? Medication Reconciliation Pharmacy has completed the medication reconciliation. Reviewed medication list with patients . Marlee HaynesD BCPS
--- NOTE | 2021-10-16 11:14 | HO.PM.IMPN ---
Subjective Subjective Date of Service: 10/16/21 Review of Systems Follow up New onset afib History of Parkinson's disease Resting in bed Denies chest pain, shortness of breath, nausea, vomiting, diarrhea All other systems are reviewed and are negative Physical Exam Vital Signs: Vital Signs: Last Vital Signs Temp 98.1 F 10/16/21 07:13 Pulse 110 H 10/16/21 07:37 Resp 16 10/16/21 07:13 BP 143/89 H 10/16/21 07:37 Pulse Ox 93 10/16/21 07:13 BMI result Body Mass Index 29.8 Appearing in no acute distress lung sounds are clear to auscultation heart regular rate rhythm, clear S1, S2 positive bowel sounds, abdomen is soft, nontender neuro patient is alert x3, no focal deficits Objective Data Active Medications Acetaminophen (Acetaminophen 325 Mg Tablet) 650 mg PO Q6H PRN PRN Reason: Pain, Mild (Pain Scale 1-3) Carbidopa/Levodopa (Carbidopa/Levodopa 25/100 Tablet) 2 tab PO TID [facility] Gabapentin (Gabapentin 100 Mg Capsule) 100 mg PO BID [facility] Last Admin: 10/16/21 07:37 Dose: 100 mg Documented by: ALBERT Melatonin (Melatonin 3 Mg Tablet) 6 mg PO BEDTIME PRN PRN Reason: Insomnia Metoprolol Tartrate (Metoprolol Tartrate 12.5 Mg Halftab) 12.5 mg PO BID [facility]; Protocol Last Admin: 10/16/21 07:37 Dose: 12.5 mg Documented by: LABERT Metoprolol Tartrate (Metoprolol Tartrate 5 Mg/5 Ml Vial) 5 mg IVPUSH Q6H PRN PRN Reason: HR>125 Last Admin: 10/16/21 03:04 Dose: 5 mg Documented by: TOD Pharmacy Consult (Consult Rx Perform Med Rec) 1 each MISCELLANE ONCE PRN PRN Reason: Consult order Senna (Sennosides 8.6 Mg Tablet) 17.2 mg PO BEDTIME PRN PRN Reason: Constipation Sodium Chloride (0.9 % Sodium Chloride Flush 3 Ml Syringe) 3 ml IVFLUSH QSHIFT [facility] Last Admin: 10/16/21 07:38 Dose: 3 ml Documented by: ALBERT Sodium Chloride (0.9 % Sodium Chloride Flush 3 Ml Syringe) 3 ml IVFLUSH QSHIFT [facility] Last Admin: 10/16/21 07:38 Dose: 3 ml Documented by: ALBERT Tamsulosin HCl (Tamsulosin Hcl 0.4 Mg Capsule) 0.4 mg PO DAILY [facility] Last Admin: 10/16/21 07:37 Dose: 0.4 mg Documented by: ALBERT Trazodone HCl (Trazodone Hcl 50 Mg Tablet) 50 mg PO BEDTIME [facility] Venlafaxine HCl (Venlafaxine Hcl Er 75 Mg Cap.Er.24h) 75 mg PO DAILY [facility] Last Admin: 10/16/21 07:38 Dose: 75 mg Documented by: ALBERT Labs CBC & Chem 7: 10/16/21 05:40 10/16/21 05:40 Labs: Laboratory Results - last 24 hr 10/15/21 10/15/21 10/15/21 15:48 15:48 15:48 MCV 90.9 MCH 31.5 MCHC 34.6 RDW 12.9 Plt Count 221 MPV 11.5 Immature Gran % (Auto) 0.4 Neut % (Auto) 87.0 H Lymph % (Auto) 6.8 L [place] % (Auto) 5.5 Eos % (Auto) 0.1 Baso % (Auto) 0.2 Lymph # (Auto) 1.0 L [place] # (Auto) 0.8 Eos # (Auto) 0.0 Baso # (Auto) 0.0 Abs Immat Gran (auto) 0.06 H Absolute Neuts (auto) 12.4 H Absolute Nucleated RBC 0.000 Nucleated RBC % (auto) 0.0 PT 13.3 H INR 1.2 H APTT 27.9 Anion Gap 13 Estim Creat Clear Calc 71.7 Estimated GFR > 60 Random Glucose 110 Calcium 9.4 Magnesium 2.2 Total Bilirubin 1.0 Direct Bilirubin 0.4 AST 22 ALT < 6 Alkaline Phosphatase 65 Troponin I High Sens B-Natriuretic Peptide Total Protein 6.8 Albumin 4.1 Urine Color Urine Appearance Urine pH Ur Specific [place] Urine Protein Urine Glucose (UA) Urine Ketones Urine Blood Urine Nitrite Ur Leukocyte Esterase Urine RBC Urine WBC Ur Squamous Epith Cells Urine Bacteria COVID-19 (AYUSH) COVID-19 Clin Com 10/15/21 10/15/21 10/15/21 15:48 15:48 18:38 MCV MCH MCHC RDW Plt Count MPV Immature Gran % (Auto) Neut % (Auto) Lymph % (Auto) [place] % (Auto) Eos % (Auto) Baso % (Auto) Lymph # (Auto) [place] # (Auto) Eos # (Auto) Baso # (Auto) Abs Immat Gran (auto) Absolute Neuts (auto) Absolute Nucleated RBC Nucleated RBC % (auto) PT INR APTT Anion Gap Estim Creat Clear Calc Estimated GFR Random Glucose Calcium Magnesium Total Bilirubin Direct Bilirubin AST ALT Alkaline Phosphatase Troponin I High Sens 83.1 H B-Natriuretic Peptide 94 Total Protein Albumin Urine Color YELLOW Urine Appearance CLEAR Urine pH 5.5 Ur Specific [place] >= 1.030 H Urine Protein 2+ H Urine Glucose (UA) NEG Urine Ketones 15 Urine Blood NEG Urine Nitrite NEG Ur Leukocyte Esterase NEG Urine RBC 0-2 Urine WBC 0 Ur Squamous Epith Cells TRACE Urine Bacteria NONE COVID-19 (AYUSH) Negative COVID-19 Clin Com See Note 10/16/21 10/16/21 10/16/21 03:59 05:40 05:40 MCV 90.8 MCH 31.7 MCHC 34.9 RDW 12.8 Plt Count 232 MPV 11.2 Immature Gran % (Auto) 0.5 H Neut % (Auto) 78.6 H Lymph % (Auto) 14.1 L [place] % (Auto) 6.0 Eos % (Auto) 0.5 Baso % (Auto) 0.3 Lymph # (Auto) 2.0 [place] # (Auto) 0.8 Eos # (Auto) 0.1 Baso # (Auto) 0.0 Abs Immat Gran (auto) 0.07 H Absolute Neuts (auto) 10.9 H Absolute Nucleated RBC 0.000 Nucleated RBC % (auto) 0.0 PT INR APTT Anion Gap 10 L Estim Creat Clear Calc 81.0 Estimated GFR > 60 Random Glucose 119 H Calcium 9.3 Magnesium Total Bilirubin Direct Bilirubin AST ALT Alkaline Phosphatase Troponin I High Sens 91.6 H B-Natriuretic Peptide Total Protein Albumin Urine Color Urine Appearance Urine pH Ur Specific [place] Urine Protein Urine Glucose (UA) Urine Ketones Urine Blood Urine Nitrite Ur Leukocyte Esterase Urine RBC Urine WBC Ur Squamous Epith Cells Urine Bacteria COVID-19 (AYUSH) COVID-19 Clin Com Assessment and Plan (1) HTN (hypertension): Status: Acute (2) Parkinson disease: Status: Acute (3) New onset a-fib: Status: Acute (4) Multiple falls: Status: Acute Assessment and Plan: 70-year-old male with a past medical history of hypertension, depression, Parkinson disease presented to the hospital today with a chief complaint of generalized weakness.? ? Also complained of recurrent falls.? Noted to have new onset AFib as well.? New onset atrial fibrillation. Initially heart rate 120s to 130s. Metoprolol 12.5 b.i.d. started Seen and evaluated by cardiology with recommendation to consider starting anticoagulation if patient is going to a facility however if he is going home this is likely not a good idea as patient has frequent falls Echocardiogram Frequent falls Physical therapy evaluation for possible short-term rehab placement History of Parkinson disease Continue Sinemet Hypertension. Stable blood pressure Continue amlodipine DVT prophylaxis with heparin Attending Dr. Villarreal Quality Stroke Does the patient have a stroke diagnosis?: No VTE Prior VTE?: No VTE Risk Level:: Medical - moderate - high VTE Device Contraindication: N/A - Device Ordered VTE Drug Contraindication: Treatment Not Indicated
[2021-10-16] MEDS: traZODone HCL 50 MG TABLET PO (22:07)
[2021-10-16 22:08] VITALS: BP 150/88; PULSE 126
[2021-10-17] VITALS (12 sets, daily range): BP systolic 86–196; BP diastolic 56–100; PULSE 77–130; RESP 13–22; TEMP 36.1–36.6; O2SAT 94–97
[2021-10-17 06:56] LABS: Hematocrit 44.7 % (42.0-52.0); Mean Corpuscular HGB Conc 33.6 g/dl (31.0-36.0); Mean Corpuscular Hemoglobin 30.7 pg (27.0-33.0); Mean Corpuscular Volume 91.6 fL (80.0-98.0); Mean Platelet Volume 11.7 fL (9.4-12.4); Platelet Count 231 X10*3/uL (160-400); Red Blood Count 4.88 X10*6/uL (4.60-5.80); Red Cell Distribution Width 12.9 % (11.0-16.0); White Blood Count 10.4 X10*3/uL (4.8-10.8)
[2021-10-17 07:16] LABS: Anion Gap 11 (12-20); Blood Urea Nitrogen 21 mg/dL (9-16); Calcium 9.1 mg/dL (8.4-10.2); Carbon Dioxide 28 mmol/L (22-29); Chloride 105 mmol/L (96-108); Creatinine Clr Calc Pharmacy 78.2; Estimated Glomerular Filt Rate > 60; Glucose Random 107 mg/dL (60-115); Potassium 3.5 mmol/L (3.3-5.1); Sodium 140 mmol/L (135-145)
--- NOTE | 2021-10-17 07:50 | PC.NURSE ---
PT AWAKE, PLEASANT, PARTICIPATING IN HIS PHYSICAL THERAPY ASSESSMENT HE HAS EATEN BREAKFAST
--- NOTE | 2021-10-17 08:03 | PC.NURSE ---
PT IS RESTING AND HAS AGREED TO REHAB PLACEMENT. HE HAS NO IV ACCESS NOTED AT THIS TIME, WILL ASSESS FOR NEED.
[2021-10-17] MEDS: Gabapentin 100 MG CAPSULE PO ×2 (08:54→21:52)
[2021-10-17] MEDS: Metoprolol Tartrate 12.5 MG HALFTAB PO ×2 (08:54→16:01)
[2021-10-17] MEDS: Tamsulosin HCL 0.4 MG CAPSULE PO (08:54)
[2021-10-17] MEDS: Carbidopa/Levodopa 25/100 TABLET 2 TAB PO ×3 (08:56→21:51)
--- NOTE | 2021-10-17 10:00 | CA_ITS ---
Transthoracic Echocardiogram Patient (Last, First, Middle): Sylvain Pelayo, Gender: Male Date of : 1950 Age: 70 Procedure Date: 10/17/2021 Procedure Type: Transthoracic Echocardiogram [place] [facility] [place]: 167.64 cm Weight: 83.92 kg BSA: 1.93 m2 Heart Rate: bpm BP: 136 / 79 mmHg Food Mixer: Referring MD: Nathan Bingham MD Correctional Officer: Omid Holloway MD Symptoms: Afib Study Quality: Fair ECG Rhythm: Atrial Fibrillation Conclusions: - 1. Normal LV systolic function with moderate LVH with LVEF of 55-60% 2. At least mildly dilated left atrium 3. Mild aortic regurgitation 4. Normal RV systolic pressure 5. No gross pericardial effusion Findings Left Ventricle Normal left ventricular size and systolic function. There is moderately increased left ventricular wall thickness. The visually estimated ejection fraction is between 55-60%. Diastolic function is indeterminate on the basis of available data. Right Ventricle Normal right ventricular cavity size and systolic function. Atria The left atrium is mildly dilated. Interatrial shunt cannot be excluded. The right atrium was not well visualized. Aortic Valve There is mild calcification of the aortic valve. There is no aortic valve stenosis. There is mild aortic valve regurgitation. Mitral Valve There is mild anterior mitral leaflet thickening. There is trace mitral valve regurgitation. There is no mitral valve stenosis. Pulmonic Valve The pulmonic valve was not well visualized. Tricuspid Valve Likely normal tricuspid valve structure and function. There is trace tricuspid valve regurgitation. The right ventricular systolic pressure is normal. The right ventricular systolic pressure is 21 mmHg. Normal right atrial pressure. There is no evidence of pulmonary hypertension. Great Vessels All visible segments of the aorta are normal in size. The pulmonary artery was not well visualized. Venous The inferior vena cava is normal in size and collapses greater than 50% with inspiration. Pericardium/Pleural There is no evidence of pericardial effusion. Prior Study Comparison No prior study available for comparison. Measurements 2D Linear Measurements IVSd: 1.57 0.6-0.9/0.6-1.0 cm LVIDd: 4.23 3.9-5.3/4.2-5.9 cm LVIDd Index: 2.19 2.4-3.2/2.2-3.1 cm/m2 LVIDs: 2.69 2.0-3.6 cm LVPWd: 1.58 0.7-1.1 cm Ao Root: 3.30 2.1-3.5 cm LA Diam: 4.30 2.7-3.8/3.0-4.0 cm LAIDs Index: 2.23 1.5-2.3 cm/m2 LV Mass: 339.31 67-162/88-224 g LV Mass Index: 175.81 43-95/49-115 g/m2 LVOT Diam: 2.10 3.0+(-)1.3 cm Mitral Valve MV Pk E: 1.04 MV Decel Time: 121.00 E'Lateral: 11.40 E'Medial: 6.74 E/E' Med: 15.40 E/E' Lat: 9.10 PHT: 36.00 MVA PHT: 6.11 Decel [place]: 8.54 Aortic Valve AoV Pk Ede: 1.38 AoV Mn Ede: 0.81 AoV VTI: 0.21 AoV Pk Grad: 8.00 Aov Mn Grad: 3.00 PAGE Cont.VTI: 2.52 LVOT LVOT Pk Ede: 0.93 LVOT Mn Ede: 0.65 LVOT VTI: 0.15 LVOT Pk Grad: 3.00 LVOT Mn Grad: 2.00 LVOT Diam: 2.10 LVOT Area: 3.46 Diastolic Function MV Pk E: 1.04 E'Medial: 6.74 E/E' Med: 15.40 E' Laterial: 11.40 E/E' Lat: 9.10 Right Ventricle TAPSE (mm): 24.00 Tricuspid Valve TR Pk Ede: 2.14 TR Pk Grad: 18.00 RA Press: 3.00 RVSP: 21.00 Great Vessels Aorta Ao Root-2D: 3.30 2.0-3.7 cm Ao Asc: 3.40 2.1-3.4 cm Pulmonary Valve PV Pk Ede: 0.86 Peak PV Grad: 3.00 Updated in Other Vendor System with Status of Final Omid Holloway MD electronically signed on 10/17/2021 6:32:26 PM with status of Final
--- NOTE | 2021-10-17 10:34 | HO.PM.IMPN ---
Subjective Subjective Date of Service: 10/17/21 Review of Systems Follow up Afib, falls Denies chest pain, shortness of breath All other systems are reviewed and are negative Physical Exam Vital Signs: Vital Signs: Last Vital Signs Temp 97.8 F 10/17/21 06:45 Pulse 125 H 10/17/21 08:54 Resp 14 10/17/21 08:12 BP 143/88 H 10/17/21 08:54 Pulse Ox 96 10/17/21 08:12 BMI result Body Mass Index 29.8 Appearing in no acute distress lung sounds are clear to auscultation heart IRIR positive bowel sounds, abdomen is soft, nontender neuro patient is alert x3, no focal deficits Objective Data Active Medications Acetaminophen (Acetaminophen 325 Mg Tablet) 650 mg PO Q6H PRN PRN Reason: Pain, Mild (Pain Scale 1-3) Carbidopa/Levodopa (Carbidopa/Levodopa 25/100 Tablet) 2 tab PO TID [facility] Last Admin: 10/17/21 08:56 Dose: 2 tab Documented by: MONA Gabapentin (Gabapentin 100 Mg Capsule) 100 mg PO BID [facility] Last Admin: 10/17/21 08:54 Dose: 100 mg Documented by: MONA Melatonin (Melatonin 3 Mg Tablet) 6 mg PO BEDTIME PRN PRN Reason: Insomnia Metoprolol Tartrate (Metoprolol Tartrate 12.5 Mg Halftab) 12.5 mg PO BID [facility]; Protocol Last Admin: 10/17/21 08:54 Dose: 12.5 mg Documented by: MONA Metoprolol Tartrate (Metoprolol Tartrate 5 Mg/5 Ml Vial) 5 mg IVPUSH Q6H PRN PRN Reason: HR>125 Last Admin: 10/16/21 03:04 Dose: 5 mg Documented by: TOD Pharmacy Consult (Consult Rx Perform Med Rec) 1 each MISCELLANE ONCE PRN PRN Reason: Consult order Senna (Sennosides 8.6 Mg Tablet) 17.2 mg PO BEDTIME PRN PRN Reason: Constipation Sodium Chloride (0.9 % Sodium Chloride Flush 3 Ml Syringe) 3 ml IVFLUSH QSHIFT [facility] Last Admin: 10/17/21 08:03 Dose: Not Given Documented by: MONA Non-Admin Reason: See Note Sodium Chloride (0.9 % Sodium Chloride Flush 3 Ml Syringe) 3 ml IVFLUSH QSHIFT [facility] Last Admin: 10/17/21 08:03 Dose: Not Given Documented by: MONA Non-Admin Reason: Duplicate Order Tamsulosin HCl (Tamsulosin Hcl 0.4 Mg Capsule) 0.4 mg PO DAILY [facility] Last Admin: 10/17/21 08:54 Dose: 0.4 mg Documented by: MONA Trazodone HCl (Trazodone Hcl 50 Mg Tablet) 50 mg PO BEDTIME [facility] Last Admin: 10/16/21 22:07 Dose: 50 mg Documented by: SALAZAR Venlafaxine HCl (Venlafaxine Hcl Er 75 Mg Cap.Er.24h) 75 mg PO DAILY [facility] Last Admin: 10/16/21 07:38 Dose: 75 mg Documented by: ALBERT Labs CBC & Chem 7: 10/17/21 06:31 10/17/21 06:31 Labs: Laboratory Results - last 24 hr 10/17/21 10/17/21 06:31 06:31 MCV 91.6 MCH 30.7 MCHC 33.6 RDW 12.9 Plt Count 231 MPV 11.7 Absolute Nucleated RBC 0.000 Nucleated RBC % (auto) 0.0 Anion Gap 11 L Estim Creat Clear Calc 78.2 Estimated GFR > 60 Random Glucose 107 Calcium 9.1 Assessment and Plan (1) HTN (hypertension): Status: Acute (2) Parkinson disease: Status: Acute (3) New onset a-fib: Status: Acute (4) Multiple falls: Status: Acute Assessment and Plan: 70-year-old male with a past medical history of hypertension, depression, Parkinson disease presented to the hospital today with a chief complaint of generalized weakness.? ? Also complained of recurrent falls.? Noted to have new onset AFib as well.? New onset atrial fibrillation.? Initially heart rate 120s to 130s.? Metoprolol 12.5 b.i.d. started Seen and evaluated by cardiology with recommendation to consider starting anticoagulation if patient is going to a facility however if he is going home this is likely not a good idea as patient has frequent falls Pending Echocardiogram Frequent falls Physical therapy evaluation rec rehab History of Parkinson disease Continue Sinemet Hypertension.? Stable blood pressure Continue amlodipine DIPSO PT rec acute vs STR, patients is aware is is interested in [facility] DVT prophylaxis with heparin Attending Dr. Gonzales Quality Stroke Does the patient have a stroke diagnosis?: No VTE Prior VTE?: No VTE Risk Level:: Medical - moderate - high VTE Device Contraindication: N/A - Device Ordered VTE Drug Contraindication: Treatment Not Indicated
[2021-10-17] MEDS: Venlafaxine HCl ER 75 MG CAP.ER.24H PO (10:46)
--- NOTE | 2021-10-17 12:06 | MHC.CM.PN ---
pt lives c his spouse in their home. he reports that his helps him c needs he may have including transportation. he does use a walker as needed at home. per PT chad a recommendation has bee made for [facility] and the patient is requesting to go to [facility] in [place]. he has been there in the past. a ref. for [facility] has been made. cm to cont. to follow.
--- NOTE | 2021-10-17 12:07 | PM.DS ---
DS: Providers Provider Date of admission: 10/15/21 21:25 Primary care physician: Bernardo Zamarripa MD Consults: 10/15/21 21:44 Consult to Cardiology Routine Consulting Provider: Alex Aragon Reason for consultation: Afib with RVR DS: Diagnosis Discharge Diagnosis (1) HTN (hypertension): Status: Acute (2) Parkinson disease: Status: Acute (3) New onset a-fib: Status: Acute (4) Multiple falls: Status: Acute DS: Summary Hospital Course Hospital Course: HP as per admitting provider 77-year-old male with a past medical history of hypertension, depression, Parkinson disease presented to the hospital today with a chief complaint of generalized weakness.? Most of the history obtained from the family members and patient.? Reportedly over the past 3 days he has been not feeling well, increased weakness and tiredness; not moving around; had multiple episodes of soft falls; denies any head strike or loss of consciousness.?And burning to the hospital for further evaluation.? Patient denies any chest pain palpitations lightheadedness or dizziness.?Denies any numbness tingling or focal weakness.? Per family patient has been following with the neurologist at [facility]-has been giving small dose carbidopa levodopa for? his tremors on the right upper and lower extremities -likely secondary to early Parkinson disease.?Denies any signs of infection recently.?Review of all other systems is negative except mentioned above ER course: Per ER team patient noted to have new onset AFib on the EKG with heart rate in 120s to 130s on presentation; urinalysis negative for infection.? Labs essentially benign.? Admitted to the hospital for further management . New onset atrial fibrillation. patient was noted to have atrial fibrillation. He was started on metoprolol 12.5 mg twice daily and increased to 25mg BID. He was seen and evaluated by Cardiology with rec to start anticoagulation. He will be started on eliquis BID and should follow up with cardiology. Frequent falls. Seen evaluated by physical therapy. Recommended short-term rehab which patient will be attending and then home. Time Spent with Patient Time attestation: Total time spent providing and/or coordinating discharge services: Physical Exam Vital Signs: Vital Signs: Last Vital Signs Temp 97.8 F 10/17/21 06:45 Pulse 125 H 10/17/21 08:54 Resp 14 12/13/21 08:12 BP 143/88 H 10/17/21 08:54 Pulse Ox 96 10/17/21 08:12 BMI result Body Mass Index 29.8 DS: Data Data Completed and Pending Labs on day of discharge: Laboratory Results - last 24 hr 10/17/21 10/17/21 06:31 06:31 WBC 10.4 RBC 4.88 Hgb 15.0 Hct 44.7 MCV 91.6 MCH 30.7 MCHC 33.6 RDW 12.9 Plt Count 231 MPV 11.7 Absolute Nucleated RBC 0.000 Nucleated RBC % (auto) 0.0 Sodium 140 Potassium 3.5 Chloride 105 Carbon Dioxide 28 Anion Gap 11 L BUN 21 H Creatinine 0.88 Estim Creat Clear Calc 78.2 Estimated GFR > 60 Random Glucose 107 Calcium 9.1 Discharge Plan Discharge Patient Disposition: Xfer Inpatient Rehab Fac Discharge Diagnosis: New onset atrial fibrillation Referrals: Bernardo Zamarripa MD [Primary Care Provider] - 1 Week Discharge Medications: Continued amlodipine 10 mg tablet 1 tab PO BEDTIME RF: 0 venlafaxine 75 mg capsule,extended release 24hr 1 cap PO DAILY RF: 0 trazodone 50 mg tablet 1 tab PO BEDTIME RF: 0 tamsulosin 0.4 mg capsule 1 cap PO DAILY RF: 0 gabapentin 100 mg capsule 100 mg PO BID RF: 0 carbidopa-levodopa 25-100 mg tablet 2 tab PO TID RF: 0 ascorbic acid (vitamin C) [Vitamin C] 1,000 mg Tablet 1,000 mg PO DAILY RF: 0 coenzyme Q10 200 mg Capsule 200 mg PO DAILY RF: 0 cholecalciferol (vitamin D3) [Vitamin D3] 125 mcg (5,000 unit) Tablet 10,000 unit PO DAILY RF: 0 Diet: advance to usual diet Activity on Discharge: As tolerated Stand Alone Forms: Patient Portal Discharge page Care Plan Goals: Controlled atrial fibrillation Health Concerns: New onset atrial fibrillation Plan of Treatment: You have been started on a medication called metoprolol for your atrial fibrillation follow up with our primary care provider for medication management Assessment: See discharge summary
--- NOTE | 2021-10-17 14:05 | PM.PNCARD ---
Subjective Subjective Date of Service: 10/17/21 <NIKI Hollis - Last Filed: 10/17/21 14:20> 10/17/21 <Omid Holloway MD - Last Filed: 10/17/21 17:29> Principal diagnosis: new afib <NIKI Hollis - Last Filed: 10/17/21 14:20> Interval history: Cardiology follow up for afib. Seen at 1030. Today he reports feeling good without any concerning symptoms. Slept well last night. No chest pains, sob, palpitation. No dizziness with standing. Had physical therapy working with him this am. <NIKI Hollis - Last Filed: 10/17/21 14:20> Review of Systems Review of Systems As above <NIKI Hollis - Last Filed: 10/17/21 14:20> Yes all other systems are reviewed and are negative <NIKI Hollis - Last Filed: 10/17/21 14:20> Physical Exam Vital Signs: Last Vital Signs Temp 97.8 F 10/17/21 06:45 Pulse 125 H 10/17/21 08:54 Resp 14 10/17/21 08:12 BP 143/88 H 10/17/21 08:54 Pulse Ox 96 10/17/21 08:12 BMI result Body Mass Index 29.8 <NIKI Hollis - Last Filed: 10/17/21 14:20> Const General: cooperative, no acute distress, alert and awake <NIKI Hollis - Last Filed: 10/17/21 14:20> Orientation/consciousness: patient oriented x3 <NIKI Hollis - Last Filed: 10/17/21 14:20> Neck Neck: Yes normal visual inspection and Yes no JVD <NIKI Hollis - Last Filed: 10/17/21 14:20> Resp Effort & Inspection: normal respiratory effort, able to speak in complete sentences and not labored <NIKI Hollis - Last Filed: 10/17/21 14:20> Auscultation: clear to auscultation bilaterally, no rales, no rhonchi and no wheezes <Aaliyah RizzoKENDALLC - Last Filed: 10/17/21 14:20> Cardio Palpation: normal PMI <Aaliyah RizzoNITINJillianC - Last Filed: 10/17/21 14:20> Rhythm: abnormal rhythm irregularly irregular <Aaliyah Rizzo KENDALLC - Last Filed: 10/17/21 14:20> Heart sounds: S1 normal heart sound present and S2 normal heart sound present <Aaliyah RizzoNITIN-C - Last Filed: 10/17/21 14:20> Peripheral pulses: Peripheral pulses 2+ throughout <Aaliyah Rizzo [employer] - Last Filed: 10/17/21 14:20> GI Inspection: Yes normal to inspection <Aaliyah RizzoNITINJillianC - Last Filed: 10/17/21 14:20> Neuro General: patient oriented x3 <Aaliyah RizzoNITINJillianC - Last Filed: 10/17/21 14:20> Extrem General: Yes normal to inspection and No edema <Aaliyah RizzoNITINJillianC - Last Filed: 10/17/21 14:20> Objective Labs and Meds Result diagrams: : 10/17/21 06:31 10/17/21 06:31 <Aaliyah RizzoNITINLuz - Last Filed: 10/17/21 14:20> Lab results: Laboratory Results - last 24 hr 10/17/21 10/17/21 06:31 06:31 WBC 10.4 RBC 4.88 Hgb 15.0 Hct 44.7 MCV 91.6 MCH 30.7 MCHC 33.6 RDW 12.9 Plt Count 231 MPV 11.7 Absolute Nucleated RBC 0.000 Nucleated RBC % (auto) 0.0 Sodium 140 Potassium 3.5 Chloride 105 Carbon Dioxide 28 Anion Gap 11 L BUN 21 H Creatinine 0.88 Estim Creat Clear Calc 78.2 Estimated GFR > 60 Random Glucose 107 Calcium 9.1 <Aaliyah RizzoKENDALLC - Last Filed: 10/17/21 14:20> Progress Note: A&P Assessment and plan (1) New onset a-fib: Status: Acute <Aaliyah RizzoKENDALLC - Last Filed: 10/17/21 14:20> Assessment and Plan: New finding of atrial fibrillation on admit. Presented with weakness and falls at home. Being treated with heart rate control. Currently on low dose Metoprolol, BP 136/79 this am. Tele shows Afib rate 90s- 120s. No report of palpitation. Will increase Metoprolol to 25mg bid. Ongoing tele monitoring. Echo pending. CHADVASc score of 2 ( age, HTN). He has not been started on anticoagulation yet due to high fall risk and report of frequent falls at home with his hx of Parkinsons. PT working with him while inpt. Use of anticoagulation can be reeval prior to discharge. If he is going to a facility and will have supervision, then anticoagulation can be used. We will follow. <NIKI Holils - Last Filed: 10/17/21 14:20> New finding of atrial fibrillation on admit. Presented with weakness and falls at home. Being treated with heart rate control. Currently on low dose Metoprolol, BP 136/79 this am. Tele shows Afib rate 90s- 120s. No report of palpitation. Will increase Metoprolol to 25mg bid. Ongoing tele monitoring. Echo pending. CHADVASc score of 2 ( age, HTN). He has not been started on anticoagulation yet due to high fall risk and report of frequent falls at home with his hx of Parkinsons. PT working with him while inpt. Use of anticoagulation can be reeval prior to discharge. If he is going to a facility and will have supervision, then anticoagulation can be used. We will follow. Patient seen and examined. Case discussed with Aaliyah Rizzo. Patient remains with borderline rate control with atrial fibrillation. Noted to have elevated blood pressure. Will increase metoprolol to 25 mg q.6 hours. Target heart rate between 70 and 80 beats per minute. Once heart rate is adequately achieved patient can be discharged, he wants to go back home. Will hold off on oral anticoagulation therapy till we can have adequate fall prevention interventions for home. However this should not be an absolute contraindication for holding oral anticoagulation therapy. Will discuss this and follow up as outpatient. <Omid Holloway MD - Last Filed: 10/17/21 17:29> (2) HTN (hypertension): Status: Acute <NIKI Hollis - Last Filed: 10/17/21 14:20> Assessment and Plan: Controlled <NIKI Hollis - Last Filed: 10/17/21 14:20> (3) Parkinson disease: Status: Acute <NIKI Hollis - Last Filed: 10/17/21 14:20> Assessment and Plan: Follows at [facility] <NIKI Hollis - Last Filed: 10/17/21 14:20> (4) Multiple falls: Status: Acute <NIKI Hollis - Last Filed: 10/17/21 14:20> Fall Risk Details Current Medications: Current Medications Acetaminophen (Acetaminophen 325 Mg Tablet) 650 mg PO Q6H PRN PRN Reason: Pain, Mild (Pain Scale 1-3) Carbidopa/Levodopa (Carbidopa/Levodopa 25/100 Tablet) 2 tab PO TID [facility] Last Admin: 10/17/21 08:56 Dose: 2 tab Documented by: Gabapentin (Gabapentin 100 Mg Capsule) 100 mg PO BID [facility] Last Admin: 10/17/21 08:54 Dose: 100 mg Documented by: Melatonin (Melatonin 3 Mg Tablet) 6 mg PO BEDTIME PRN PRN Reason: Insomnia Metoprolol Tartrate (Metoprolol Tartrate 12.5 Mg Halftab) 12.5 mg PO BID [facility]; Protocol Last Admin: 10/17/21 08:54 Dose: 12.5 mg Documented by: Metoprolol Tartrate (Metoprolol Tartrate 5 Mg/5 Ml Vial) 5 mg IVPUSH Q6H PRN PRN Reason: HR>125 Last Admin: 10/16/21 03:04 Dose: 5 mg Documented by: Pharmacy Consult (Consult Rx Perform Med Rec) 1 each MISCELLANE ONCE PRN PRN Reason: Consult order Senna (Sennosides 8.6 Mg Tablet) 17.2 mg PO BEDTIME PRN PRN Reason: Constipation Sodium Chloride (0.9 % Sodium Chloride Flush 3 Ml Syringe) 3 ml IVFLUSH [facility] Last Admin: 10/17/21 08:03 Dose: Not Given Documented by: Sodium Chloride (0.9 % Sodium Chloride Flush 3 Ml Syringe) 3 ml IVFLUSH [facility] Last Admin: 10/17/21 08:03 Dose: Not Given Documented by: Tamsulosin HCl (Tamsulosin Hcl 0.4 Mg Capsule) 0.4 mg PO DAILY [facility] Last Admin: 10/17/21 08:54 Dose: 0.4 mg Documented by: Trazodone HCl (Trazodone Hcl 50 Mg Tablet) 50 mg PO BEDTIME [facility] Last Admin: 10/16/21 22:07 Dose: 50 mg Documented by: Venlafaxine HCl (Venlafaxine Hcl Er 75 Mg Cap.Er.24h) 75 mg PO DAILY [facility] Last Admin: 10/17/21 10:46 Dose: 75 mg Documented by: <NIKI Hollis - Last Filed: 10/17/21 14:20> Time Spent With Patient Time: Total time spent is greater than 50% in coordination of care (as documented) at patient's floor/unit and/or counseling patient: 22 <NIKI Hollis - Last Filed: 10/17/21 14:20> Time with patient: 15 - 24 minutes <NIKI Hollis - Last Filed: 10/17/21 14:20> Progress Note: Quality Stroke Does the patient have a stroke diagnosis?: No <NIKI Hollis - Last Filed: 10/17/21 14:20> Procedures Date of Service Date of Service: 10/17/21 <NIKI Hollis - Last Filed: 10/17/21 14:20>
--- NOTE | 2021-10-17 16:12 | MHC.CM.PN ---
pt lives c his spouse in their home. he reports that his helps him c needs he may have including transportation. he does use a walker as needed at home. per PT eval a recommendation has bee made for [facility] and the patient is requesting to go to [facility] in [place]. Pt reports he has not recieved any covid vaccinations. he has been there in the past. a ref. for [facility] has been made. cm to cont. to follow.
[2021-10-17] MEDS: Metoprolol Tartrate 25 MG TABLET PO (21:52)
[2021-10-17] MEDS: traZODone HCL 50 MG TABLET PO (21:53)
[2021-10-18] VITALS (8 sets, daily range): BP systolic 110–155; BP diastolic 66–94; PULSE 79–98; RESP 16–18; TEMP 36.1–36.8; O2SAT 93–95
[2021-10-18] MEDS: 0.9 % Sodium Chloride Flush 3 ML SYRINGE IVFLUSH ×4 (00:55→23:46)
[2021-10-18] MEDS: Metoprolol Tartrate 25 MG TABLET PO ×3 (05:35→21:14)
[2021-10-18 05:51] LABS: Hematocrit 43.9 % (42.0-52.0); Hemoglobin 15.1 g/dl (14.0-18.0); Mean Corpuscular HGB Conc 34.4 g/dl (31.0-36.0); Mean Corpuscular Hemoglobin 31.4 pg (27.0-33.0); Mean Corpuscular Volume 91.3 fL (80.0-98.0); Mean Platelet Volume 11.4 fL (9.4-12.4); Platelet Count 224 X10*3/uL (160-400); Red Blood Count 4.81 X10*6/uL (4.60-5.80); Red Cell Distribution Width 12.9 % (11.0-16.0)
[2021-10-18 06:13] LABS: Anion Gap 11 (12-20); Blood Urea Nitrogen 22 mg/dL (9-16); Calcium 9.1 mg/dL (8.4-10.2); Carbon Dioxide 27 mmol/L (22-29); Chloride 105 mmol/L (96-108); Creatinine Clr Calc Pharmacy 78.2; Estimated Glomerular Filt Rate > 60; Glucose Random 103 mg/dL (60-115); Potassium 3.6 mmol/L (3.3-5.1); Sodium 139 mmol/L (135-145)
[2021-10-18] MEDS: Venlafaxine HCl ER 75 MG CAP.ER.24H PO (08:58)
[2021-10-18] MEDS: Gabapentin 100 MG CAPSULE PO ×2 (08:58→21:13)
[2021-10-18] MEDS: Tamsulosin HCL 0.4 MG CAPSULE PO (08:58)
[2021-10-18] MEDS: Carbidopa/Levodopa 25/100 TABLET 2 TAB PO ×3 (08:59→21:13)
--- NOTE | 2021-10-18 10:17 | P.PNCA_ITS ---
Subjective Subjective Date of Service: 10/18/21 <NIKI Hollis - Last Filed: 10/18/21 10:51> 10/18/21 <Omid Holloway MD - Last Filed: 10/18/21 12:16> Principal diagnosis: new afib <NIKI Hollis - Last Filed: 10/18/21 10:51> Interval history: Cardiology follow up for afib. Seen at 0930. Today he reports feeling well. No sob, chest pains, palpitation, dizziness. He was walking with the help of physical therapist this am. He slept well last night. Would like to go to rehab - after [place]. manager helpdesk informed and will talk with pt. <NIKI Hollis - Last Filed: 10/18/21 10:51> Review of Systems Review of Systems as above <NIKI Hollis - Last Filed: 10/18/21 10:51> Yes all other systems are reviewed and are negative <NIKI Hollis - Last Filed: 10/18/21 10:51> Physical Exam Vital Signs: Last Vital Signs Temp 97 F 10/18/21 04:12 Pulse 88 10/18/21 07:37 Resp 18 10/18/21 04:12 BP 134/85 10/18/21 07:37 Pulse Ox 95 10/18/21 04:12 BMI result Body Mass Index 29.8 <NIKI Hollis - Last Filed: 10/18/21 10:51> Const General: cooperative, healthy appearing, no acute distress, alert and awake <NIKI Hollis - Last Filed: 10/18/21 10:51> Orientation/consciousness: patient oriented x3 <NIKI Hollis - Last Filed: 10/18/21 10:51> Neck Neck: Yes normal visual inspection and Yes no JVD <NIKI Hollis - Last Filed: 10/18/21 10:51> Resp Effort & Inspection: normal respiratory effort, able to speak in complete sentences and not labored <NIKI Hollis - Last Filed: 10/18/21 10:51> Auscultation: clear to auscultation bilaterally, no rales, no rhonchi and no wheezes <Aaliyah Rizzo NP - Last Filed: 10/18/21 10:51> Cardio Rate: regular rate <Aaliyah Rizzo NP - Last Filed: 10/18/21 10:51> Rhythm: abnormal rhythm irregularly irregular <Aaliyah Matthias [facility] - Last Filed: 10/18/21 10:51> Heart sounds: S1 normal heart sound present and S2 normal heart sound present <Aaliyah Rizzo [facility] - Last Filed: 10/18/21 10:51> Peripheral pulses: Peripheral pulses 2+ throughout <Aaliyah Matthias [facility] - Last Filed: 10/18/21 10:51> GI Inspection: Yes normal to inspection <Aaliyah Rizzo [facility] - Last Filed: 10/18/21 10:51> Neuro General: patient oriented x3 <Aaliyah Rizzo [facility] - Last Filed: 10/18/21 10:51> Extrem General: Yes normal to inspection and No edema <Aaliyah Rizzo [facility] - Last Filed: 10/18/21 10:51> Objective Labs and Meds Result diagrams: : 10/18/21 05:32 10/18/21 05:32 <Aaliyah RizzoNITIN - Last Filed: 10/18/21 10:51> Lab results: Laboratory Results - last 24 hr 10/18/21 10/18/21 05:32 05:32 WBC 10.0 RBC 4.81 Hgb 15.1 Hct 43.9 MCV 91.3 MCH 31.4 MCHC 34.4 RDW 12.9 Plt Count 224 MPV 11.4 Absolute Nucleated RBC 0.000 Nucleated RBC % (auto) 0.0 Sodium 139 Potassium 3.6 Chloride 105 Carbon Dioxide 27 Anion Gap 11 L BUN 22 H Creatinine 0.88 Estim Creat Clear Calc 78.2 Estimated GFR > 60 Random Glucose 103 Calcium 9.1 <Aaliyah RizzoNITIN - Last Filed: 10/18/21 10:51> Progress Note: A&P Assessment and plan (1) New onset a-fib: Status: Acute <Aaliyah RizzoNITINLuz - Last Filed: 10/18/21 10:51> Assessment and Plan: New finding of atrial fibrillation on admit. Presented with weakness and falls at home. Echo shows EF 55-60%, mod LVH, mildly dilated LA, mild AR. Being treated with heart rate control. Metoprolol dose increased yesterday due to ongoing elevated rates. Tele now shows afib rates 70-90s. Will change Metoprolol tartrate to 50mg bid. CHADVASc score of 2 ( age, HTN). Anticoagulation is indicated. He has falls at home due to Parkinsons. Recommend he start on NOAC - Eliquis 5 mg bid if he is going to a rehab facility/ SNF where he has close observation. He can be discharged from cardiology perspective. We will arrange for outpt cardiology follow up. <NIKI Hollis - Last Filed: 10/18/21 10:51> New finding of atrial fibrillation on admit. Presented with weakness and falls at home. Echo shows EF 55-60%, mod LVH, mildly dilated LA, mild AR. Being treated with heart rate control. Metoprolol dose increased yesterday due to ongoing elevated rates. Tele now shows afib rates 70-90s. Will change Metoprolol tartrate to 50mg bid. CHADVASc score of 2 ( age, HTN). Antico agulation is indicated. He has falls at home due to Parkinsons. Recommend he start on NOAC - Eliquis 5 mg bid if he is going to a rehab facility/ SNF where he has close observation. He can be discharged from cardiology perspective. We will arrange for outpt cardiology follow up. Patient seen and case discussed with Aaliyah Rizzo. Patient heart rate much better control on increase metoprolol. Can switch to 50 mg b.i.d.. Given his risk for stroke, can start Eliquis 5 mg b.i.d. while in group home facility. Long-term oral anticoagulation to be discuss further when patient's home and if he continues to fall frequently. However should consider fall prevention strategies rather than holding anticoagulation. <Omid Holloway MD - Last Filed: 10/18/21 12:16> (2) Multiple falls: Status: Acute <NIKI Hollis - Last Filed: 10/18/21 10:51> (3) Parkinson disease: Status: Acute <INKI Hollis - Last Filed: 10/18/21 10:51> Assessment and Plan: Follows at [facility] <NIKI Hollis - Last Filed: 10/18/21 10:51> (4) HTN (hypertension): Status: Acute <NIKI Hollis - Last Filed: 10/18/21 10:51> Assessment and Plan: Well controlled. <NIKI Hollis - Last Filed: 10/18/21 10:51> Fall Risk Details Current Medications: Current Medications Acetaminophen (Acetaminophen 325 Mg Tablet) 650 mg PO Q6H PRN PRN Reason: Pain, Mild (Pain Scale 1-3) Carbidopa/Levodopa (Carbidopa/Levodopa 25/100 Tablet) 2 tab PO TID [facility] Last Admin: 10/18/21 08:59 Dose: 2 tab Documented by: Gabapentin (Gabapentin 100 Mg Capsule) 100 mg PO BID [facility] Last Admin: 10/18/21 08:58 Dose: 100 mg Documented by: Melatonin (Melatonin 3 Mg Tablet) 6 mg PO BEDTIME PRN PRN Reason: Insomnia Metoprolol Tartrate (Metoprolol Tartrate 5 Mg/5 Ml Vial) 5 mg IVPUSH Q6H PRN PRN Reason: HR>125 Last Admin: 10/16/21 03:04 Dose: 5 mg Documented by: Metoprolol Tartrate (Metoprolol Tartrate 25 Mg Tablet) 25 mg PO BID [facility]; Protocol Last Admin: 10/18/21 08:58 Dose: 25 mg Documented by: Pharmacy Consult (Consult Rx Perform Med Rec) 1 each MISCELLANE ONCE PRN PRN Reason: Consult order Senna (Sennosides 8.6 Mg Tablet) 17.2 mg PO BEDTIME PRN PRN Reason: Constipation Sodium Chloride (0.9 % Sodium Chloride Flush 3 Ml Syringe) [facility] Last Admin: 10/18/21 08:59 Dose: 3 ml Documented by: Sodium Chloride (0.9 % Sodium Chloride Flush 3 Ml Syringe) 3 ml IVFLUSH QSWIFT [facility] Last Admin: 10/18/21 08:59 Dose: Not Given Documented by: Tamsulosin HCl (Tamsulosin Hcl 0.4 Mg Capsule) 0.4 mg PO DAILY [facility] Last Admin: 10/18/21 08:58 Dose: 0.4 mg Documented by: Trazodone HCl (Trazodone Hcl 50 Mg Tablet) 50 mg PO BEDTIME [facility] Last Admin: 10/17/21 21:53 Dose: 50 mg Documented by: Venlafaxine HCl (Venlafaxine Hcl Er 75 Mg Cap.Er.24h) 75 mg PO DAILY [facility] Last Admin: 10/18/21 08:58 Dose: 75 mg Documented by: <NIKI Hollis - Last Filed: 10/18/21 10:51> Time Spent With Patient Time: Total time spent is greater than 50% in coordination of care (as documented) at patient's floor/unit and/or counseling patient: <NIKI Hollis - Last Filed: 10/18/21 10:51> Time with patient: 15 - 24 minutes <NIKI Hollis - Last Filed: 10/18/21 10:51> Progress Note: Quality Stroke Does the patient have a stroke diagnosis?: No <NIKI Hollis - Last Filed: 10/18/21 10:51> Procedures Date of Service Date of Service: 10/18/21 <NIKI Hollis - Last Filed: 10/18/21 10:51>
--- NOTE | 2021-10-18 14:36 | HO.PM.IMPN ---
Subjective Subjective Date of Service: 10/18/21 Review of Systems Follow up Afib, falls Denies chest pain, shortness of breath All other systems are reviewed and are negative Physical Exam Vital Signs: Vital Signs: Last Vital Signs Temp 97 F 10/18/21 04:12 Pulse 88 10/18/21 07:37 Resp 18 10/18/21 04:12 BP 134/85 10/18/21 07:37 Pulse Ox 95 10/18/21 04:12 BMI result Body Mass Index 29.8 Objective Data Active Medications Acetaminophen (Acetaminophen 325 Mg Tablet) 650 mg PO Q6H PRN PRN Reason: Pain, Mild (Pain Scale 1-3) Apixaban (Apixaban 5 Mg Tablet) 5 mg PO BID [facility] Carbidopa/Levodopa (Carbidopa/Levodopa 25/100 Tablet) 2 tab PO TID [facility] Last Admin: 10/18/21 08:59 Dose: 2 tab Documented by: SHANTHI Gabapentin (Gabapentin 100 Mg Capsule) 100 mg PO BID [facility] Last Admin: 10/18/21 08:58 Dose: 100 mg Documented by: SHANTHI Melatonin (Melatonin 3 Mg Tablet) 6 mg PO BEDTIME PRN PRN Reason: Insomnia Metoprolol Tartrate (Metoprolol Tartrate 5 Mg/5 Ml Vial) 5 mg IVPUSH Q6H PRN PRN Reason: HR>125 Last Admin: 10/16/21 03:04 Dose: 5 mg Documented by: TOD Metoprolol Tartrate (Metoprolol Tartrate 25 Mg Tablet) 25 mg PO BID [facility]; Protocol Last Admin: 10/18/21 08:58 Dose: 25 mg Documented by: SHANTHI Pharmacy Consult (Consult Rx Perform Med Rec) 1 each MISCELLANE ONCE PRN PRN Reason: Consult order Senna (Sennosides 8.6 Mg Tablet) 17.2 mg PO BEDTIME PRN PRN Reason: Constipation Sodium Chloride (0.9 % Sodium Chloride Flush 3 Ml Syringe) [facility] Last Admin: 10/18/21 08:59 Dose: 3 ml Documented by: SHANTHI Sodium Chloride (0.9 % Sodium Chloride Flush 3 Ml Syringe) 3 ml IVFLUSH QSVAFT [facility] Last Admin: 10/18/21 08:59 Dose: Not Given Documented by: HO.LAVM Non-Admin Reason: Duplicate Order Tamsulosin HCl (Tamsulosin Hcl 0.4 Mg Capsule) 0.4 mg PO DAILY [facility] Last Admin: 10/18/21 08:58 Dose: 0.4 mg Documented by: SHANTHI Trazodone HCl (Trazodone Hcl 50 Mg Tablet) 50 mg PO BEDTIME [facility] Last Admin: 10/17/21 21:53 Dose: 50 mg Documented by: LIANE Venlafaxine HCl (Venlafaxine Hcl Er 75 Mg Cap.Er.24h) 75 mg PO DAILY [facility] Last Admin: 10/18/21 08:58 Dose: 75 mg Documented by: SHANTHI Labs CBC & Chem 7: 10/18/21 05:32 10/18/21 05:32 Labs: Laboratory Results - last 24 hr 10/18/21 10/18/21 05:32 05:32 MCV 91.3 MCH 31.4 MCHC 34.4 RDW 12.9 Plt Count 224 MPV 11.4 Absolute Nucleated RBC 0.000 Nucleated RBC % (auto) 0.0 Anion Gap 11 L Estim Creat Clear Calc 78.2 Estimated GFR > 60 Random Glucose 103 Calcium 9.1 Assessment and Plan (1) New onset a-fib: Status: Acute (2) Multiple falls: Status: Acute Assessment and Plan: 70-year-old male with a past medical history of hypertension, depression, Parkinson disease presented to the hospital today with a chief complaint of generalized weakness.? ? Also complained of recurrent falls.? Noted to have new onset AFib as well.? New onset atrial fibrillation.? Initially heart rate 120s to 130s.? Metoprolol increased to 25 mg BID Seen and evaluated by cardiology rec starting ac with eliquis BID Echocardiogram Showed EF of 55-60% with normal LV systolic function with moderate LVH Frequent falls Physical therapy evaluation rec rehab will be started on ac, monitor for falls History of Parkinson disease Continue Sinemet Hypertension.? Stable blood pressure Continue amlodipine DIPSO awaiting authorization for [facility] DVT prophylaxis with heparin Attending Dr. Gonzales Quality Stroke Does the patient have a stroke diagnosis?: No VTE Prior VTE?: No VTE Risk Level:: Medical - moderate - high VTE Device Contraindication: N/A - Device Ordered VTE Drug Contraindication: Treatment Not Indicated
[2021-10-18] MEDS: Apixaban 5 MG TABLET PO (21:13)
[2021-10-18] MEDS: traZODone HCL 50 MG TABLET PO (21:13)
[2021-10-19 08:20] VITALS: BP 151/88; PULSE 112; RESP 18; TEMP 36.7; O2SAT 94
[2021-10-19] MEDS: Apixaban 5 MG TABLET PO (08:59)
[2021-10-19] MEDS: Carbidopa/Levodopa 25/100 TABLET 2 TAB PO (08:59)
[2021-10-19] MEDS: Gabapentin 100 MG CAPSULE PO (09:00)
[2021-10-19] MEDS: Tamsulosin HCL 0.4 MG CAPSULE PO (09:00)
[2021-10-19] MEDS: Venlafaxine HCl ER 75 MG CAP.ER.24H PO (09:00)
[2021-10-19] MEDS: Metoprolol Tartrate 25 MG TABLET PO (09:01)
[2021-10-19] MEDS: 0.9 % Sodium Chloride Flush 3 ML SYRINGE IVFLUSH (09:01)
--- NOTE | 2021-10-19 09:47 | MHC.CM.PN ---
Per MD, Patient will be medically cleared for dc to [facility] today. Patient will dc to [facility] today at 1 PM, via [facility]. CM addressed IMM with Patient, providing him with the original and placing a copy on the chart. Patient is aware of and in agreement with the dc plan. Per Patient's request, CM has left a detailed message for Patient's /Nereida at [phone], informing her of the dc details.
[2021-10-19 09:52] LABS: COVID-19 Test Negative (Negative)
--- NOTE | 2021-10-19 11:36 | P.DS_ITS ---
DS: Providers Provider Date of Service: 10/19/21 Date of admission: 10/15/21 21:25 Primary care physician: Bernardo Zamarripa MD Consults: 10/15/21 21:44 Consult to Cardiology Routine Consulting Provider: Alxe Aragon Reason for consultation: Afib with RVR DS: Diagnosis Discharge Diagnosis (1) New onset a-fib: Status: Acute (2) Multiple falls: Status: Acute DS: Summary Hospital Course Hospital Course: HP as per admitting provider 77-year-old male with a past medical history of hypertension, depression, Parkinson disease presented to the hospital today with a chief complaint of generalized weakness.? Most of the history obtained from the family members and patient.? Reportedly over the past 3 days he has been not feeling well, increased weakness and t iredness; not moving around; had multiple episodes of soft falls; denies any head strike or loss of consciousness.?And burning to the hospital for further evaluation.? Patient denies any chest pain palpitations lightheadedness or dizziness.?Denies any numbness tingling or focal weakness.? Per family patient has been following with the neurologist at [facility]-has been giving small dose carbidopa levodopa for? his tremors on the right upper and lower extremities -likely secondary to early Parkinson disease.?Denies any signs of infection recently.?Review of all other systems is negative except mentioned above ER course: Per ER team patient noted to have new onset AFib on the EKG with heart rate in 120s to 130s on presentation; urinalysis negative for infection.? Labs essentially benign.? Admitted to the hospital for further management . New onset atrial fibrillation. patient was noted to have atrial fibrillation. He was started on metoprolol 12.5 mg twice daily and increased to 25mg BID. He was seen and evaluated by Cardiology with rec to start anticoagulation. He will be started on eliquis BID and should follow up with cardiology. Frequent falls. Seen evaluated by physical therapy. Recommended short-term rehab which patient will be attending and then home. Time Spent with Patient Time attestation: Total time spent providing and/or coordinating discharge services: Discharge coordination time: Greater than 30 minutes Quality: Stroke Does the patient have a stroke diagnosis?: No Physical Exam Vital Signs: Vital Signs: Last Vital Signs Temp 98.0 F 10/19/21 08:20 Pulse 112 H 10/19/21 08:20 Resp 18 10/19/21 08:20 BP 151/88 H 10/19/21 08:20 Pulse Ox 94 10/19/21 08:20 BMI result Body Mass Index 29.8 Gen: in no acute distress HEENT: sclera anicteric, moist mucus membranes Neck: supple Lungs: clear to auscultation bilaterally Heart: irregularly irregular with rate of 92, no murmurs noted Abd: soft, non-tender, non-distended Ext: no edema Skin: warm/well-perfused Neuro: alert and oriented x3, no focal findings Psych: appropriate affect DS: Data Data Completed and Pending Completed studies during hospitalization [Text1]: Laboratory Results WBC 10.0 X10*3/uL (4.8-10.8) 10/18/21 05:32 RBC 4.81 X10*6/uL (4.60-5.80) 10/18/21 05:32 Hgb 15.1 g/dl (14.0-18.0) 10/18/21 05:32 Hct 43.9 % (42.0-52.0) 10/18/21 05:32 MCV 91.3 fL (80.0-98.0) 10/18/21 05:32 MCH 31.4 pg (27.0-33.0) 10/18/21 05:32 MCHC 34.4 g/dl (31.0-36.0) 10/18/21 05:32 RDW 12.9 % (11.0-16.0) 10/18/21 05:32 Plt Count 224 X10*3/uL (160-400) 10/18/21 05:32 MPV 11.4 fL (9.4-12.4) 10/18/21 05:32 Immature Gran % (Auto) 0.5 % (0.0-0.4) H 10/16/21 05:40 Neut % (Auto) 78.6 % (45-73) H 10/16/21 05:40 Lymph % (Auto) 14.1 % (20-40) L 10/16/21 05:40 [place] % (Auto) 6.0 % (2-11) 10/16/21 05:40 Eos % (Auto) 0.5 % (0-4) 10/16/21 05:40 Baso % (Auto) 0.3 % (0-2) 10/16/21 05:40 Lymph # (Auto) 2.0 X10*3/uL (1.2-4.9) 10/16/21 05:40 [place] # (Auto) 0.8 X10*3/uL (0.1-1.2) 10/16/21 05:40 Eos # (Auto) 0.1 X10*3/uL (0.0-0.4) 10/16/21 05:40 Baso # (Auto) 0.0 X10*3/uL (0.0-0.2) 10/16/21 05:40 Abs Immat Gran (auto) 0.07 X10*3/uL (0.00-0.03) H 10/16/21 05:40 Absolute Neuts (auto) 10.9 x10*3/uL (2.0-8.3) H 10/16/21 05:40 Absolute Nucleated RBC 0.000 X10*3/uL (0.0-0.012) 10/18/21 05:32 Nucleated RBC % (auto) 0.0 /100WBC (0.0-0.2) 10/18/21 05:32 PT 13.3 SEC (9.9-13.0) H 10/15/21 15:48 INR 1.2 (0.9-1.1) H 10/15/21 15:48 APTT 27.9 SEC (24.1-38.0) 10/15/21 15:48 Sodium 139 mmol/L (135-145) 10/18/21 05:32 Potassium 3.6 mmol/L (3.3-5.1) 10/18/21 05:32 Chloride 105 mmol/L (96-108) 10/18/21 05:32 Carbon Dioxide 27 mmol/L (22-29) 10/18/21 05:32 Anion Gap 11 (12-20) L 10/18/21 05:32 BUN 22 mg/dL (9-16) H 10/18/21 05:32 Creatinine 0.88 mg/dL (0.5-1.4) 10/18/21 05:32 Estim Creat Clear Calc 78.2 10/18/21 05:32 Estimated GFR > 60 10/18/21 05:32 Random Glucose 103 mg/dL (60-115) 10/18/21 05:32 Calcium 9.1 mg/dL (8.4-10.2) 10/18/21 05:32 Magnesium 2.2 mg/dL (1.6-2.6) 10/15/21 15:48 Total Bilirubin 1.0 mg/dL (0.0-1.0) 10/15/21 15:48 Direct Bilirubin 0.4 mg/dL (0.0-0.5) 10/15/21 15:48 AST 22 U/L (5-37) 10/15/21 15:48 ALT < 6 U/L (0-40) 10/15/21 15:48 Alkaline Phosphatase 65 U/L (39-117) 10/15/21 15:48 Troponin I High Sens 91.6 ng/L (<3.5-35.0) H 10/16/21 03:59 B-Natriuretic Peptide 94 pg/mL (<100) 10/15/21 15:48 Total Protein 6.8 g/dL (6.5-8.0) 10/15/21 15:48 Albumin 4.1 g/dL (3.5-5.0) 10/15/21 15:48 Urine Color YELLOW 10/15/21 18:38 Urine Appearance CLEAR 10/15/21 18:38 Urine pH 5.5 (5.0-8.0) 10/15/21 18:38 Ur Specific [place] >= 1.030 (1.005-1.025) H 10/15/21 18:38 Urine Protein 2+ MG/DL (NEG-TRACE) H 10/15/21 18:38 Urine Glucose (UA) NEG MG/DL (NEG) 10/15/21 18:38 Urine Ketones 15 MG/DL (NEG) 10/15/21 18:38 Urine Blood NEG (NEG) 10/15/21 18:38 Urine Nitrite NEG (NEG) 10/15/21 18:38 Ur Leukocyte Esterase NEG (NEG) 10/15/21 18:38 Urine RBC 0-2 /HPF (0) 10/15/21 18:38 Urine WBC 0 /HPF (0-4) 10/15/21 18:38 Ur Squamous Epith Cells TRACE /LPF 10/15/21 18:38 Urine Bacteria NONE /LPF 10/15/21 18:38 COVID-19 (AYUSH) Negative (Negative) 10/19/21 09:00 COVID-19 Clin Com See Note 10/19/21 09:00 Impressions Chest X-Ray 10/15/21 15:35 IMPRESSION: Slightly elevated right hemidiaphragm. No evidence for acute disease in the chest. Head CT 10/15/21 16:24 IMPRESSION: No acute intracranial hemorrhage or mass effect. Venous Duplex 10/15/21 17:54 IMPRESSION: No DVT demonstrated in the bilateral lower extremity. A 4.0 x 2.1 x 3.3 cm fluid collection in the popliteal fossa. TTE 10/17/21 1.? Normal LV systolic function with moderate LVH with LVEF of 55-60% ? 2. At least mildly dilated left atrium ? 3. Mild aortic regurgitation ? 4.? Normal RV systolic pressure? 5. No gross pericardial effusion ? ? . Discharge Plan Discharge Patient Disposition: Xfer Inpatient Rehab Fac Discharge Diagnosis: New onset atrial fibrillation Referrals: [facility] [Other] - 1 Week Bernardo Zamarripa MD [Primary Care Provider] - 1 Week Alex Aragon MD [Physician] - 2 Weeks Discharge Medications: New Eliquis 5 mg Tablet 5 mg PO BID Qty: 60 RF: 0 metoprolol tartrate 25 mg Tablet 25 mg PO BID Qty: 60 RF: 0 Continued venlafaxine 75 mg capsule,extended release 24hr 1 cap PO DAILY RF: 0 trazodone 50 mg tablet 1 tab PO BEDTIME RF: 0 tamsulosin 0.4 mg capsule 1 cap PO DAILY RF: 0 gabapentin 100 mg capsule 100 mg PO BID RF: 0 carbidopa-levodopa 25-100 mg tablet 2 tab PO TID RF: 0 ascorbic acid (vitamin C) [Vitamin C] 1,000 mg Tablet 1,000 mg PO DAILY RF: 0 coenzyme Q10 200 mg Capsule 200 mg PO DAILY RF: 0 cholecalciferol (vitamin D3) [Vitamin D3] 125 mcg (5,000 unit) Tablet 10,000 unit PO DAILY RF: 0 Discontinued amlodipine 10 mg tablet 1 tab PO BEDTIME RF: 0 Discharge Orders: Discharge Order (Routine); Ordered 10/19/21 Ordered By: Emi Roe Diet: advance to usual diet and low salt diet Activity on Discharge: As tolerated Stand Alone Forms: Patient Portal Discharge page Care Plan Goals: Controlled atrial fibrillation Health Concerns: New onset atrial fibrillation Plan of Treatment: You have been started on a medication called metoprolol for your atrial fibrillation- 25 mg twice daily, which will control blood pressure. Stop amlodipine. You have also been started on apixaban [Eliquis]- 5 mg twice daily- to prevent strokes from AF. follow up with [facility] for medication management and Holter monitor; also see your primary care doctor Assessment: See discharge summary Patient Instructions: A-fib (Atrial Fibrillation) (DC)
--- NOTE | 2021-10-19 12:37 | PC.NURSE ---
Report called to [facility] spoke with Nona nursing supervisior, gave her report on patient.
== END 2021-10-19 13:00 | disposition skilled nursing facility (03) | DRG 310 ==
LOC: HO.ED 18:07 → HO.EDOVER 10-16 06:07 → HO.S3 10-17 18:31
PROVIDERS: Nurse Practitioner Acute Care; Physician Assistant; Admitting Provider Hospitalist; Emergency Provider Emergency Medicine; PCP Internal Medicine; Visit Provider Family Medicine
DX: I48.91 Unspecified atrial fibrillation (principal); I10 Essential (primary) hypertension; G20 Parkinson's disease; R29.6 Repeated falls; F32.A Depression, unspecified; Z91.81 History of falling; Z20.822 Contact with and (suspected) exposure to COVID-19; Z79.01 Long term (current) use of anticoagulants; Z79.899 Other long term (current) drug therapy
CPT/HCPCS: 36415; 70450; 71045; 80048; 80076; 81001; 83735; 83880; 84484; 85025; 85027; 85610; 85730; 87635; 93005; 93306; 93970; 96374; 97110; 97116; 97162; 97166; 97535; 99285; 99291

== ENCOUNTER → 2021-11-07 13:25 | Outpatient (REF) | payer MEDICARE, SELFPAY ==
--- NOTE | 2021-11-07 13:31 | HM_ITS ---
Conclusion: 1. Patient was monitored for total period of 3 days and 2 hours. 2. Baseline rhythm is atrial fibrillation with average heart rate of 103 beats per minute 3. Frequent rapid ventricular response noted with 46% of time heart rate greater than 100 beats per minute suggestive of in adequate rate control 4. Occasional PVCs with total burden of 0.47% of total beats 5. Two episodes of nonsustained VT the longest 6 beats 6. No patient reported symptoms MTDD
== END ==
LOC: HO.CARD 13:25
PROVIDERS: PCP Internal Medicine; Visit Provider Internal Medicine Cardiovascular Disease
DX: I48.91 Unspecified atrial fibrillation (principal)
CPT/HCPCS: 93242